=== PATIENT | female | born 1960 | race Hispanic/Latino ===

== ENCOUNTER 2021-11-05 12:18 | Outpatient (CLI) | payer MEDICAID, SELFPAY ==
--- NOTE | ~2021-11-05 | XR_ITS ---
EXAMINATION: XR hip RT min 2V DATE: 11/05/2021 13:05 INDICATION: Right hip pain. TECHNIQUE: 2 views of right hip were obtained. COMPARISON: None. FINDINGS: Bone alignment is normal. No fracture. There is mild right hip osteoarthritis. IMPRESSION: 1. Mild right hip osteoarthritis. Reviewed, dictated and finalized at location A.
--- NOTE | ~2021-11-05 | XR_ITS ---
XR chest 2V DATE: 11/05/2021 13:05 INDICATION: Chest pain. TECHNIQUE: PA and lateral views COMPARISON: None FINDINGS: Normal heart size. Mild aortic unfolding. No hilar or mediastinal enlargement. No pulmonary infiltrate or consolidation, pleural effusion or pulmonary vascular congestion or pneumo thorax is detected. Mild dextroscoliosis and degenerative spurring of the thoracic spine. IMPRESSION: No active cardiopulmonary disease Reviewed, dictated and finalized at location B.
== END 2021-11-05 12:19 | disposition home or self-care (01) ==
PROVIDERS: PCP Physician Assistant; Visit Provider Physician Assistant
DX: R07.89 Other chest pain (principal); G62.9 Polyneuropathy, unspecified; M16.11 Unilateral primary osteoarthritis, right hip; M41.9 Scoliosis, unspecified; M47.814 Spondylosis without myelopathy or radiculopathy, thoracic region
CPT/HCPCS: 71046; 73502

== ENCOUNTER 2021-11-28 09:50 | Outpatient (CLI) | payer MEDICAID, SELFPAY ==
--- NOTE | 2021-11-28 11:00 | NEURO_ITS ---
Impression: # Complains of numbness of left lower extremity. # Normal nerve conduction study except peroneal F-wave is slightly asymmetrical. # Normal needle/EMG exam. # Clinical correlation recommended. Nerve Conduction Studies Anti Sensory Summary Table Stim Site NR Peak (ms) P-T Amp (?V) Site1 Site2 Delta-P (ms) Dist (cm) Constantin (m/s) Left Sup Fibular Anti Sensory (Ant Lat Mall) 14 cm 2.8 12.5 14 cm Ant Lat Mall 2.8 16.0 57 Left Sural Anti Sensory (Lat Mall) Calf 3.3 4.8 Calf Lat Mall 3.3 16.0 48 Motor Summary Table Stim Site NR Onset (ms) O-P Amp (mV) Site1 Site2 Delta-0 (ms) Dist (cm) Constantin (m/s) Left Peroneal Motor (Vastus Med) Ankle 5.0 1.6 Popit Ankle 7.1 39.0 55 Popit 12.1 1.5 Left Tibial Motor (Abd Wells Brev) Ankle 4.9 4.2 Knee Ankle 7.7 41.0 53 Knee 12.6 1.3 F Wave Studies NR F-Lat (ms) L-R F-Lat (ms) Left Peroneal (Mrkrs) (EDB) 52.27 Left Tibial (Mrkrs) (Abd Hallucis) 49.82 EMG Side Muscle Nerve Root Ins Act Fibs Amp Dur Recrt Comment Left AntTibialis Dp Br Fibular L4-5 Nml Nml Nml Nml Nml Left Gastroc Tibial S1-2 Nml Nml Nml Nml Nml Left Fibularis Long Sup Br Fibular L5-S1 Nml Nml Nml Nml Nml Left Flex Dig Long Tibial L5-S2 Nml Nml Nml Nml Nml Left Ext Dig Brev Dp Br Fibular L5, S1 Nml Nml Nml Nml Nml MTDD
== END 2021-11-28 09:51 | disposition home or self-care (01) ==
PROVIDERS: PCP Physician Assistant; Visit Provider Physician Assistant
DX: I71.9 Aortic aneurysm of unspecified site, without rupture (principal)
CPT/HCPCS: 95886; 95908

== ENCOUNTER 2021-12-11 07:30 | Outpatient (CLI) | payer MEDICAID, SELFPAY ==
--- NOTE | ~2021-12-11 | US_ITS ---
EXAMINATION: US aorta DATE: 12/11/2021 08:21 INDICATION: Abdominal aortic aneurysm screening TECHNIQUE: Grayscale, color Doppler, and pulsed Doppler images of the aorta and common iliac arteries were obtained. COMPARISON: None. FINDINGS: Maximum vascular dimensions are as follows: Proximal aorta: 1.9 cm Mid aorta: 1.6 cm Distal aorta: 1.4 cm Right common iliac artery: 1.0 cm Left common iliac artery: 1.0 cm There is no evidence of abdominal aortic aneurysm. IMPRESSION: 1. No sonographic evidence of abdominal aortic aneurysm. Reviewed, dictated and finalized at location B.
== END 2021-12-11 07:31 | disposition home or self-care (01) ==
PROVIDERS: PCP Physician Assistant; Visit Provider Physician Assistant
DX: I71.9 Aortic aneurysm of unspecified site, without rupture (principal)
CPT/HCPCS: 76775

== ENCOUNTER 2021-12-16 07:30 | Outpatient (CLI) | payer MEDICAID, SELFPAY ==
--- NOTE | 2021-12-16 | EST_ITS ---
Patient Info Name: Rina Navarrete Age: 61 years : 1960 Gender: Female Ht: 63 in Wt: 157 lbs BSA: 1.80 m2 HR: 56 bpm BP: 150 / 68 mmHg Heart Rhythm: Sinus Rhythm Exam Date: 12/16/2021 10:29 AM Exam Location: [facility] Stress Patient Status: Outpatient Admit Date: 12/16/2021 Staff Ordering Physician: Gab, Thu REECE Attending Provider: Gab, Thu REECE Exercise Technologist: Marysol Petersen, CT Nurse: fatmata briceno Exam Type: CA stress richard w NM Study Info Indications R07.9 - Chest pain, unspecified A regadenoson stress test was performed. Summary 1. Sinus bradycardia with occasional PVC. 2. No abnormal ST or T-wave abnormalities noted following Lexiscan injection. 3. Occasional PVCs during the exam. 4. Clinically and electrocardiographically uneventful and unremarkable Lexiscan stress test. 5. Myocardial perfusion imaging exam to be reported by Radiology. Protocol: Lexiscan Stress ECG Details Stage: REST Duration (min): 1 min : 16 sec HR (bpm): 57 SBP (mmHg): 150 DBP (mmHg): 68 Stage: REST Duration (min): 5 min : 29 sec HR (bpm): 60 SBP (mmHg): 150 DBP (mmHg): 68 Stage: STAGE 1 Duration (min): 1 min : 0 sec HR (bpm): 95 SBP (mmHg): 150 DBP (mmHg): 68 Stage: RECOVERY Duration (min): 1 min : 0 sec HR (bpm): 98 SBP (mmHg): 150 DBP (mmHg): 68 Stage: RECOVERY Duration (min): 2 min : 0 sec HR (bpm): 93 SBP (mmHg): 150 DBP (mmHg): 68 Stage: RECOVERY Duration (min): 3 min : 0 sec HR (bpm): 90 SBP (mmHg): 150 DBP (mmHg): 66 Stage: RECOVERY Duration (min): 3 min : 16 sec HR (bpm): 89 SBP (mmHg): 150 DBP (mmHg): 66 Rest HR: 60 bpm Peak HR: 101 bpm Rest Sys BP: 150 mmHg Peak Sys BP: 150 mmHg Max Pred HR: 157 bpm % Max Pred HR: 64 % Target HR: 133 bpm Max RPP: 15,150 bpm*mmHg Termination Reason: Completed protocol Cardiac Symptoms: None Total Time: 1 min : 0 sec Rest Erickson BP: 68 mmHg Peak Erickson BP: 66 mmHg Total Dose: 0.4 mg Resting ECG Sinus bradycardia with occasional PVC. Stress ECG No abnormal ST or T-wave abnormalities noted following Lexiscan injection. Arrhythmias Occasional PVCs during the exam. Report Signatures
--- NOTE | 2021-12-16 | ECHO_ITS ---
Patient Info Name: Rina Navarrete Age: 61 years : 1960 Gender: Female Ht: 57 in Wt: 220 lbs BSA: 2.07 m2 HR: 69 bpm BP: 162 / 84 mmHg Heart Rhythm: Sinus Rhythm Technical Quality: Good Exam Date: 12/16/2021 8:26 AM Exam Location: [facility] Patient Status: Outpatient Admit Date: 12/16/2021 Staff Ordering Physician: GabThu Heel Stainer: Kati Edwards RDCS Attending Provider: Gab, Thu REECE Referring Physician: Gab SKINNER; Exam Type: CA echo doppler color flow Study Info Indications I71.9 - Aortic aneurysm of unspecified site, without rupture Complete two-dimensional, color flow and Doppler transthoracic echocardiogram is performed. Summary 1. Complete two-dimensional, color flow and Doppler transthoracic echocardiogram is performed. 2. Left ventricular chamber dimension is normal. 3. Left ventricular systolic function is normal, estimated at 65-70%. 4. Left atrial chamber dimension is mildly enlarged. 5. Very small amounts of mitral, aortic and tricuspid valve insufficiency. Left Ventricle Left ventricular chamber dimension is normal. Left ventricular systolic function is normal, estimated at 65-70%. The left ventricular diastolic function is normal. Global longitudinal strain is normal at 22 %. Right Ventricle Right ventricular chamber dimension is normal. Left Atria Left atrial chamber dimension is mildly enlarged. Right Atria Right atrial chamber dimension is normal. Aortic Valve The aortic valve is normal. There is trace aortic valve regurgitation. Pulmonic Valve The pulmonic valve is not well visualized. Mitral Valve The mitral valve has normal leaflets. There is trace mitral valve regurgitation. Tricuspid Valve The tricuspid valve leaflets are normal. There is mild tricuspid valve regurgitation. Pericardium/Pleural The pericardium appears normal. Aorta The aortic root size at the sinus of Valsalva is normal. Left Ventricular Outflow Tract Name Value Normal LVOT 2D LVOT Diameter 2.0 cm LVOT Doppler LVOT Peak Gradient 5 mmHg LVOT Mean Gradient 3 mmHg LVOT VTI 28 cm LVOT VTI/AV VTI Ratio 0.8 LVOT Stroke Volume 87 ml LVOT CO 5.5 l/min LVOT CI 2.6 l/min/m2 Pulmonic Valve Name Value Normal RVOT Doppler RVOT Peak Gradient 4 mmHg PV Doppler PV Peak Gradient 9 mmHg Mitral Valve Name Value Normal
--- NOTE | ~2021-12-16 | NM_ITS ---
EXAMINATION: NM richard stress w perfusion DATE: 12/16/2021 11:33 INDICATION: Chest pain. TECHNIQUE: Rest images were obtained following intravenous administration of 11.2 mCi Tc99m tetrofosm in (Myoview). The patient was infused intravenously with Lexiscan (regadenoson). Then, 32.3 mCi Tc99m tetrofosmin (Myoview) was administered intravenously, and stress images were obtained. Data was radha nstructed into short axis and horizontal and vertical long axis SPECT images. Gated SPECT images were also obtained. COMPARISON: None. FINDINGS: There is no definite reversible or fixed perfusion abnormality to suggest ischemia or infar ction. There is no segmental wall motion abnormality. Left ventricular ejection fraction measures > 70%. IMPRESSION: 1. No definite ischemia or infarct. 2. Normal left ventricular ejection fraction measuring >70%. Reviewed, dictated and finalized at location A.
== END 2021-12-16 07:31 | disposition home or self-care (01) ==
LOC: ANHCARD 07:31
PROVIDERS: PCP Physician Assistant; Visit Provider Physician Assistant
DX: R07.9 Chest pain, unspecified (principal)
CPT/HCPCS: 78452; 93017; 93306; A9502; J2785

== ENCOUNTER 2022-04-23 11:00 | Outpatient (RCR) | payer MEDICAID, SELFPAY ==
--- NOTE | 2022-02-20 15:46 | PTOPEVAL1 ---
Assessment and note entered by Kenyetta Austin, PT Evaluation Information Assessment Status Evaluation Diagnosis R hip pain Onset over 1 year ago Subjective Information chronic issues with hip; decreased walking and stairs due to pain; have problems putting on shoes and socks R LE; have had 2 falls in the past 6 months--tripped over R foot and caught toe on rug; had nerve conduction test on legs and was normal; x rays at chiropractor told her arthritis in back and hip; Reported Pain Level Pain Score Self Report Additional Pain Score Comments pain range of 7-8/10; lateral R hip pain; stinging pain, sore,hurts; walking tolerance reported 10 min; problems with putting on shoes and socks R foot; walking and stairs increase pain ; R leg weak and feels like going to go out; sleeps on her L side, can sleep OK; also have R and L knee pain, L hip pain, low back pain; Assessment PT Clinical Summary Rina has the diagnosis of R hip pain. Her history includes: multiple areas of pain: low back pain, L hip pain; B TKR with knee pain, falls and decreased walking. Reports pain and weakness in R leg. She is not doing any home exercises, other than home tasks and walking short distances. She speaks Kinyarwanda--her daughter was present and interpreted for pt. With the evaluation, she has decreased strength of R hip, knee and ankle; decreased flexibility of R hamstring; decreased walking pattern and balance 2 minute walking test distance of 320'; Skilled PT services are indicated to increase R LE strength, gait and balance skills, with modalities for pain as needed. Will monitor back pain as activity level increases. Plan of Care Interventions Electrical Stimulation,Hot Pack/Cold Pack,Manual Therapy,Neuro Re-education,Patient/Caregiver Education,Therapeutic Activities,Therapeutic Exercise PT Services Indicated Yes Treatment Frequency and 2x/wk for 4 weeks Duration These treatments will address the objective and functional deficits as defined above. The patient will be advanced safely and appropriately in order for the patient to progress towards his/her prior level of function. Additional exercises will be introduced and as well as a comprehensive home exercise program upon discharge, if needed, ?to ensure carryover of functional gains achieved in the clinic. This treatment plan has been reviewed and agreement upon by the patient.
--- NOTE | 2022-03-19 11:49 | PTOPPROG ---
Assessment and note entered by Kenyetta Austin, PT Evaluation Information Assessment Status Progress Diagnosis R hip pain Onset over 1 year ago Subjective Information feels like she has improved with stability with walking and able to get dressed easier with shoes, socks and pants; have not had any falls; has been doing the leg exercises; when moving her leg, it feels like her muscles are not listening to what her brain is telling them to move; the massage over her leg and back helps the pain; wants to continue therapy; has a follow up dr appointment this afternoon. pain range of 0-7/10, R low back and R hip, sore like it was hit, sore to touch; walking/standing tolerance about 10 minutes, then R leg and foot drag; Assessment PT Clinical Summary Rina has received 8 PT sessions. Her daughter interprets for her. Compared to the initial evaluation: pain at the low rating has decreased from 7 to 0/10 and worst rating decreased from 8 to 7/10; reported walking tolerance is the same; is not able to lift R leg and cross it onto her L to put her shoes and socks on; 2 minute walking distance increased by 80'; her walking pattern is the same---decreased R ankle DF, holds B hips IR, L > R, lateral motion of her trunk R/L; strength of R hip and ankle have increased but still have weakness of hip abduction and ankle DF motions. She has been educated on a home exercise program and correct posture/positioning of hips/legs. The goals were partially achieved. Continue PT treatment. Plan of Care Interventions Electrical Stimulation,Gait Training,Hot Pack/Cold Pack,Manual Therapy,Neuro Re-education,Patient/ Caregiver Education,Therapeutic Activities, Therapeutic Exercise,Ultrasound,Other Other Interventions taping PT Services Indicated Yes Treatment Frequency and 1x/wk for 5 weeks Duration These treatments will address the objective and functional deficits as defined above. The patient will be advanced safely and appropriately in order for the patient to progress towards his/her prior level of function. Additional exercises will be introduced and as well as a comprehensive home exercise program upon discharge, if needed, ?to ensure carryover of functional gains achieved in the clinic. This treatment plan has been reviewed and agreement upon by the patient.
--- NOTE | 2022-04-10 14:13 | PCPTNOTE ---
Pt no showed appt today, CHIEF ACCOUNTING OFFICER called number listed in chart with recording that the voicemail has not been set up.
--- NOTE | 2022-04-23 11:39 | PTOPDC ---
Assessment and note entered by Kenyetta Austin, PT Evaluation Information Assessment Status Discharge Diagnosis R hip pain Onset over 1 year ago Subjective Information pt and her daughter report: have not had any falls ; more sore from moving and the new apartment has stairs to the bedroom; standing/walking tolerance 30-40 minutes; Reported Pain Level Pain Score Self Report Additional Pain Score Comments pain range in past week: 0-8/10; R posterior, lateral hip and into lateral thigh; increase pain with stairs, after sitting and get up when first start walking; decreased pain with tylenol, heat and massage with tennis ball; Assessment PT Clinical Summary Rina has received 12 PT sessions. Compared to the last reeval: pain rating same at low rating 0/10 and increase from 7 to 8/10 at high rating; reported standing/walking tolerance increased from 10 min to 30-40 minutes; 2 minute walking distance & strength with R single leg standing, side lying hip abduction and ankle DF & circles is about the same; gait pattern is a little more straight, not as much deviation R/L The goals were partially achieved. Discussed with her, if she continues to have hip pain, may want to obtain an orthopedic consult for assessment for THR or if it is referred from her lumbar spine. Discharge from PT and she is to continue with her HEP. Plan of Care PT Services Indicated No
== END 2022-04-23 13:20 | disposition home or self-care (01) ==
LOC: ANHPT 11:00
PROVIDERS: PCP Physician Assistant; Visit Provider Physician Assistant
DX: M25.551 Pain in right hip (principal)
CPT/HCPCS: 97014; 97110; 97140; 97162; 97530; G0283

== ENCOUNTER 2022-04-30 13:05 | Outpatient (CLI) | payer MEDICAID, SELFPAY ==
--- NOTE | ~2022-04-30 | US_ITS ---
US breast RT limited DATE: 04/30/2022 13:48 INDICATION: Right chest wall/breast mass, 7:00-8:00 area 6 cm from nipple TECHNIQUE: Real-time imaging 7:00-8:00 6 cm from nipple at area of complaint of breast lump. COMPARISON: None FINDINGS: Real-time imaging 7:00-8:00 6 cm from nipple at area of complaint of breast lump reveals no suspicious mass or shadowing, cyst or other significant sonographic abnormality. IMPRESSION: BI-RADS Category 1: Negative There is no record mammogram examinations of this institution. Annual mammographic screening is recom mended. Reviewed, dictated and finalized at Location [facility]. Reviewed, dictated and finalized at location A. TEACHER IMPRESSION: BI-RADS Category 1: Negative There is no record mammogram examinations of this institution. Annual mammograp hic screening is recommended.
== END 2022-04-30 13:06 | disposition home or self-care (01) ==
PROVIDERS: PCP Physician Assistant; Visit Provider Physician Assistant
DX: R22.2 Localized swelling, mass and lump, trunk (principal)
CPT/HCPCS: 76604; 76642

== ENCOUNTER 2022-07-15 20:16 | Emergency (ER) | payer MEDICAID, SELFPAY ==
--- NOTE | ~2022-07-15 | CT_ITS ---
CT of the Abdomen and Pelvis: Indication: Abdominal pain Technique: 2.5 mm axial scans were obtained through the abdomen and pelvis following intravenous adm inistration of 100 cc of Omnipaque 350. Dose reduction technique was used on this scan by utilizing a utomated exposure control and iterative reconstruction technique. The dose-length product (DLP) was 1 076.92 mGy-cm. Findings: Scans through the lung bases are unremarkable. The liver, spleen, pancreas, adrenals and kidneys are within normal limits. Tiny calcified gallstones noted. No evidence of aortic aneurysm. No lymphadenopathy. No bowel obstruction or bowel wall thickening. There is no evidence to suggest acute appendicitis. Images through the pelvis were performed. Urinary bladder unremarkable. Patient is post hysterectomy. No pelvic mass seen. No ascites. Impression: Cholelithiasis. Reviewed, dictated and finalized at [facility]. Impression: Cholelithiasis.
[2022-07-15 20:26] VITALS: BP 142/77; PULSE 95; RESP 19; TEMP 37.4; O2SAT 96
[2022-07-15 20:57] LABS: Basophils Percent Auto 0.3 % (0.2-1.2); Eosinophils Percent Auto 0.5 % (0-4.4); Hematocrit 39.7 % (37.0-47.0); Hemoglobin 13.1 g/dL (12.0-15.0); Immature Granulocyte Absolute 0.03 K/mm3 (0.00-0.031); Immature Granulocyte Percent A 0.4 % (0-0.5); Lymphocytes Absolute Auto 1.33 K/mm3 (0.9-3.2); Lymphocytes Percent Auto 17.2 % (18.3-44.2); Mean Corpuscular Hemoglobin 31.1 pg (26-34); Mean Corpuscular Volume 94.3 fl (80-100); Mean Platelet Volume 11.2 fl (7.4-10.4); Monocytes Absolute Auto 0.4 K/mm3 (0.1-0.6); Monocytes Percent Auto 5.6 % (2.6-8.5); Neutrophils Absolute Auto 5.9 K/mm3 (1.3-6.7); Platelet Count Result 168 k/mm3 (150-375); Red Blood Count 4.21 M/mm3 (4.2-5.4); Red Cell Distribution Width 13.2 % (11.5-14.5); White Blood Count 7.7 K/mm3 (4.5-10.0)
[2022-07-15 21:14] LABS: Alanine Aminotransferase 25 U/L (6-35); Albumin Level 4.8 g/dL (3.5-5.1); Alkaline Phosphatase 107 U/L (38-126); Anion Gap 10 mmol/L (8-16); Aspartate Amino Transferase 27 U/L (14-36); Bilirubin,Total 0.5 mg/dL (0.2-1.3); Blood Urea Nitrogen 11 mg/dL (7-17); Calcium 8.9 mg/dL (8.4-10.2); Carbon Dioxide 28 mmol/L (22-30); Chloride 103 mmol/L (98-107); Estimated CRCL calculation 99 ml/min; Estimated Glomerular Filt Rate > 60; Glucose 123 mg/dL (65-110); Lipase 37 U/L (23-300); Potassium 3.6 mmol/L (3.4-5.0); Sodium 141 mmol/L (137-145)
[2022-07-15 22:29] LABS: Appearance Urine Clear (Clear); Bacteria Urine None Seen /hpf; Bilirubin Urine Negative (Negative); Blood Urine Negative (Negative); Color Urine Yellow (Yellow); Glucose Urine UA Negative (Negative); Ketones Urine Negative (Negative); Leukocyte Esterase Ur 1+ LEU/UL (Negative); Nitrate Urine Negative (Negative); Non Pathogenic Casts 0-2; Protein Urine Negative (Negative); RBC Urine 0-2 /hpf (0-2); Specific Grav Ur 1.013 (1.001-1.035); Squamous Epithelial Cell Urine Occasional /hpf (Few); Urobilinogen Urine 0.2 mg/dL (<2.0)
[2022-07-15 22:41] LABS: Add Urine Microscopic? YES
--- NOTE | 2022-07-15 23:05 | PC.NURSE ---
Patient report given to OBDULIA Goetz. All questions answered and care of patient transferred.
--- NOTE | 2022-07-15 23:56 | ED.ABDPAIN ---
HPI - Abdominal Pain General Chief Complaint: Abdominal Pain Stated Complaint: vomiting Time Seen by Provider: 07/15/22 23:36 History of Present Illness HPI narrative: Patient is a 61-year-old female here for evaluation of right upper quadrant abdominal pain x1 day. Patient states the pain is mild and intermittent in nature, occasionally will radiate to her right scapula. She is also had numerous episodes of vomiting nonbloody/nonbilious emesis over the past day in addition to several episodes of diarrhea. The last thing that she ate was some beef out of a can. Denies any fevers or chills, sick contacts. She has had no surgeries on her abdomen. Related Data Home Medications Medication Instructions Recorded Confirmed aspirin 81 mg tablet,delayed 81 mg PO DAILY 12/12/21 06/18/22 release (Adult Low Dose Aspirin) atorvastatin 10 mg tablet 10 mg PO DAILY 12/12/21 06/18/22 baclofen 10 mg tablet 10 mg PO BID 12/12/21 06/18/22 carbamazepine 200 mg tablet 200 mg PO Q12H 12/12/21 06/18/22 hydrochlorothiazide 25 mg tablet 25 mg PO DAILY 12/12/21 06/18/22 amitriptyline 50 mg tablet 50 mg PO QHS 06/18/22 06/18/22 lisinopril 2.5 mg tablet 2.5 mg PO DAILY 06/18/22 06/18/22 Allergies Allergy/AdvReac Type Severity Reaction Status Date / Time No Known Allergies Allergy Verified 06/18/22 10:17 Review of Systems Review of Systems: Gen.: Denies fevers or chills Eyes: Denies eye pain or visual change ENT: Denies congestion Respiratory: Denies shortness of breath or cough CV: Denies chest pain or palpitations GI: Reports abdominal pain, nausea and vomiting denies burning, urgency, frequency or hematuria Musculoskeletal: Denies back pain or muscle pain Neuro: Denies numbness, tingling, weakness or focal weakness Skin: Denies rash Except as documented, all other systems reviewed and negative [facility] Past Medical History Medical History Borderline hyperlipidemia Cerebrovascular accident Chest pain Hypertension Neuropathy Obesity Pain in joint of right hip Trigeminal neuralgia Social History Social History Smoking status: Never smoker Alcohol intake: never Substance use: never Exam Narrative: APPEARANCE: Well appearing, no pain in distress, well-nourished. Head: Normocephalic and atraumatic. EYES: PERRLA/EOMI, conjunctivae clear NOSE: No nasal drainage EARS: External ear normal in appearance THROAT: Oropharynx is clear. Mucous membranes are moist. NECK: Supple. No adenopathy, no masses. RESPIRATORY: Airway patent, respirations nonlabored. Clear to auscultation bilaterally, no rales, rhonchi, wheezing. CARDIOVASCULAR: Regular rate and rhythm without murmurs, rubs, or gallops. ABDOMINAL: tender to palpation in RUQ. Normoactive bowel sounds. Soft, nondistended. No rebound tenderness or guarding. MUSCULOSKELETAL: Extremities are warm and well-perfused. Moves all extremities well. No edema. NEURO: Normal speech. No focal neurologic deficits. SKIN: Skin is warm and dry. No rashes. PSYCHIATRIC: Normal affect/mood. Course Vital Signs Vital signs: Vital Signs Temperature 99.3 F 07/15/22 20:26 Pulse Rate 95 07/15/22 20:26 Respiratory Rate 19 07/15/22 20:26 Blood Pressure 142/77 H 07/15/22 20:26 Pulse Oximetry 96 07/15/22 20:26 Oxygen Delivery Room Air 07/15/22 20:26 Temperature 99.3 F 07/15/22 20:26 Pulse Rate 78 07/16/22 02:16 Respiratory Rate 18 07/16/22 02:16 Blood Pressure 140/85 07/16/22 02:16 Pulse Oximetry 98 07/16/22 02:16 Oxygen Delivery Room Air 07/15/22 20:26 MDM - Abdominal Pain MDM Narrative Medical decision making narrative: Patient is a 61-year-old female here for evaluation of abdominal pain, nausea and vomiting over the past several days after eating something suspicious at home. She is nontoxic in appearance and has normal vital sign
[2022-07-16] MEDS: SODIUM CHLORIDE 0.9% IV 1,000 ML 999 ML IV CONT (00:20)
[2022-07-16] MEDS: FAMOTIDINE 20 MG/2 ML VIAL IV PUSH (00:22)
[2022-07-16] MEDS: ONDANSETRON INJ 4 MG/2 ML VIAL IV PUSH (00:23)
[2022-07-16 02:16] VITALS: BP 140/85; PULSE 78; RESP 18; O2SAT 98
== END 2022-07-16 02:19 | disposition home or self-care (01) ==
PROVIDERS: Emergency Medicine; Emergency Provider Physician Assistant; PCP Physician Assistant
DX: K52.9 Noninfective gastroenteritis and colitis, unspecified (principal); I10 Essential (primary) hypertension; G62.9 Polyneuropathy, unspecified; E66.9 Obesity, unspecified; Z68.41 Body mass index [BMI] 40.0-44.9, adult; Z86.73 Personal history of transient ischemic attack (TIA), and cerebral infarction without residual deficits; Z79.82 Long term (current) use of aspirin
CPT/HCPCS: 36415; 74177; 80053; 81001; 81025; 83690; 85025; 87086; 87147; 87181; 87186; 96361; 96374; 96375; 99284; J2405; J7030; Q9967

== ENCOUNTER 2022-08-18 11:38 | Outpatient (CLI) | payer MEDICAID, SELFPAY ==
[2022-08-18 13:26] LABS: Amylase 70 U/L (30-110)
== END 2022-08-18 11:39 | disposition home or self-care (01) ==
LOC: ANHSURGERY 11:44
PROVIDERS: PCP Physician Assistant; Visit Provider Surgery
DX: K80.20 Calculus of gallbladder without cholecystitis without obstruction (principal)
CPT/HCPCS: 36415; 82150; 86850; 86900; 86901

== ENCOUNTER 2022-08-25 00:09 | Day surgery (SDC) | payer MEDICAID, SELFPAY ==
[2022-08-18 12:13] VITALS: BP 147/69; PULSE 60; RESP 16; TEMP 37; O2SAT 96; BMI 41.3
--- NOTE | 2022-08-18 12:48 | PC.NURSE ---
Report to the Outpatient Waiting Room, entrance under the green pavilion located off [facility], at time __11:30PM on date __08/25/22 . Planned Procedure Time: ___1:30PM . Time changes happen often and if your time is changed the preop area will call you the afternoon before. - You and your visitor will be asked to self-screen and do not enter if you have any COVID symptoms. - A mask is optional within the hospital at this time. Patients may have clear liquids (water, carbonated beverages, clear teas, apple juice) until 3 hours prior to surgery with a maximum of 20 ounces. - No food from midnight until time of surgery Take the following medications with a SIP of water the morning of surgery: ___CARBAMAZEPINE DO NOT STOP ANY OF YOUR OTHER PRESCRIPTION MEDICATIONS PRIOR TO SURGERY ?EXCEPT THE FOLLOWING Medications to discontinue per physician ____HOLD ALL VITAMINS/SUPPLEMENTS 3 DAYS PRE-OP Date to take last dose___08/21/22 Please no make-up, nail arabic, hairspray, perfume, deodorant, or body powder the day of surgery. No jewelry (including any body piercings) or valuables the day of surgery, leave them at home. Please take a shower or bath the night before, or the morning of, surgery with an antibacterial soap. Wear comfortable, loose fitting clothing. Children are encouraged to wear pajamas. - Jewelry must be removed prior to entering the operating room. Rings and piercings that are not removed may be cut off. - The hospital will not accept responsibility for valuables. - Please leave all valuables, including medications, at home the day of surgery. If you are going home after surgery, a licensed driver's education instructor must drive you home. - NO public transportation without another adult if you receive anesthesia. - We recommend that an adult stay with you for 24 hours following discharge. - We also recommend that you do not drive, make important decision, drink alcoholic beverages, or take any drugs that were not prescribed by your health care provider for at least 24 hours after your discharge time. Follow any additional instructions given to you from your surgeon. HIBICLENS SHOWER MORNING OF SURGERY If you or anyone in your household have experienced Covid symptoms in the past week, please notify your surgeon or the nurse liaison at the phone number below for possible testing. Telephone instructions given to __PATIENT & SON and asked if any additional questions and then verbalized understanding. Patient advised to call surgeon office or pre surgery nurse liaison [phone] if any additional questions.
[2022-08-25] VITALS (9 sets, daily range): BP systolic 123–150; BP diastolic 52–72; PULSE 60–83; RESP 12–16; TEMP 36.4–36.7; O2SAT 94–98
[2022-08-25] MEDS: ACETAMINOPHEN 500 MG TABLET 1000 MG PO (11:03)
--- NOTE | 2022-08-25 11:23 | WPDHPUPDATE1 ---
History and Physical Update Update Date/Time: 08/25/22 11:23 History and Physical has been reviewed, including an updated exam of the patient. There are NO changes in the patient's condition. Risks, benefits, and alternatives have been discussed and questions answered. Patient agrees to proceed with procedure.
[2022-08-25] MEDS: LACTATED RINGERS 1,000 ML 30 ML IV CONT ×2 (11:30→13:44)
[2022-08-25] MEDS: KETOROLAC 15 MG/ML VIAL (*BKC) IV PUSH (11:54)
--- NOTE | 2022-08-25 12:18 | P.PNAN_ITS ---
Anes - Initial Pre Proc Eval Procedure: Operation Date: 08/25/22 13:00 Proposed Procedures p Laparoscopic Cholecystectomy, Possible Open - Dylan Jesus DO Date/Time: 08/25/22 12:18 Surgeon: Dylan Jesus DO Pre Op Diagnosis: symptomatic cholelithiasis Patient Data Age: 61 Gender: F Height: 1.52 m Weight: 94.3 kg Last Vital Signs Temp 36.7 C 08/25/22 11:37 Pulse 83 08/25/22 11:37 Resp 16 08/25/22 11:37 BP 142/72 H 08/25/22 11:37 Pulse Ox 97 08/25/22 11:37 O2 Del Method Room Air 08/25/22 11:37 Allergies Allergy/AdvReac Type Severity Reaction Status Date / Time No Known Allergies Allergy Verified 08/25/22 10:51 Home Medications Medication Instructions Recorded Confirmed Type aspirin 81 mg tablet,delayed 81 mg PO DAILY 12/12/21 08/25/22 History release (Adult Low Dose Aspirin) atorvastatin 10 mg tablet 10 mg PO HS 12/12/21 08/25/22 History baclofen 10 mg tablet 5 mg PO BID 12/12/21 08/18/22 History carbamazepine 200 mg tablet 150 mg PO Q12H 12/12/21 08/18/22 History hydrochlorothiazide 25 mg tablet 25 mg PO QAM 12/12/21 08/25/22 History amitriptyline 50 mg tablet 50 mg PO QHS 06/18/22 08/25/22 History ondansetron 4 mg disintegrating 4 mg PO Q8H PRN nausea and 07/16/22 08/18/22 Rx tablet vomiting #7 tabs lisinopril 10 mg tablet 10 mg PO HS 08/18/22 08/25/22 History magnesium 250 mg tablet 250 mg PO DAILY 08/18/22 08/25/22 History multivitamin 1 tablet PO DAILY 08/18/22 08/25/22 History omega 2-unr-rjz-fish oil 1,200 mg 1 cap PO DAILY 08/18/22 08/25/22 History (144 mg-216 mg) capsule (Fish Oil) Patient hx anesthesia problems: none Family hx anesthesia problems: none Results Review: All pre-operative results and documents have been reviewed as part of the pre- operative evaluation. [facility], [facility] Past Medical History Medical History Borderline hyperlipidemia Cerebrovascular accident Chest pain Hypertension Neuropathy Obesity Pain in joint of right hip Trigeminal neuralgia Social History Social History Smoking status: Never smoker Alcohol intake: never Substance use: never Living arrangements: with family Additional living arrangements comments: DAUGHTER Spiritual care concerns: No Anes - Eval Final PreProcedure Day of Procedure 08/25/22 12:18 Patient weight: morbidly obese Heart: regular rate and rhythm Lungs: clear to auscultation Airway: Mallampati scale class II Neurological: alert and oriented Last oral intake: >/= 8 hours ASA classification: III Emergent: no Anesthetic plan: proceed Anesthesia type and monitoring: general ETT and standard monitoring Results Review: All pre-operative results and documents have been reviewed as part of the pre- operative evaluation. Informed Consent: The patient's anesthetic plan and its attendant risks and benefits were discussed with the patient/family/POA. Questions were solicited and answers prov ided to the satisfaction of the patient/family/POA.
[2022-08-25] MEDS: ceFAZolin 2 GM/D5W 50 ML 2 GM/50 ML BAG IVPB (12:44)
[2022-08-25] MEDS: BUPIVACAINE/EPINEPHRINE 0.5% 50 ML VIAL 30 ML INFILTRATE (13:26)
--- NOTE | 2022-08-25 13:35 | W.PM.PROC2 ---
Procedure Note - Detailed Date of Procedure 08/25/22 Pre-op Diagnosis symptomatic cholelithiasis Post-op Diagnosis Same Procedure Performed Laparoscopic Cholecystectomy Surgeon Dylan Jesus, DO Anesthesia General and Local (0.5% bupivacaine) Indications This is a 61-year-old woman who presented with upper abdominal pain that started about 1 year ago. Her symptoms became more frequent and severe over the past month. She was experiencing symptoms particularly with eating fried or fatty foods. A CT of her abdomen and pelvis was performed which showed evidence of cholelithiasis. Discussions were made with the patient about treatment options and decision was made to proceed with laparoscopic cholecystectomy, possible open. Findings Laparoscopic cholecystectomy was performed. The patient was found to have a dilated gallbladder that tapered down to a normal appearing cystic duct. The gallbladder wall appeared normal. No other significant abnormalities were noted. The gallbladder was removed and sent to the lab for pathology. Description of Procedure Procedure as well as risks, benefits, and alternatives were discussed with patient. Written consent was obtained and placed in chart prior to procedure. The patient was brought back to surgical suite. Patient was placed in supine position on operating table. Time-out was done to confirm patient and procedure. Patient was then intubated by the anesthesia department. Abdomen was prepped and draped in sterile fashion using chlorhexidine prep. 0.5% bupivacaine with epinephrine was infiltrated at each site of incision. A 5 millimeter incision was made near the umbilicus, and a 5 millimeter Optiview trocar was advanced through the abdominal layers under direct visualization. Once inside the abdominal cavity, carbon dioxide was insufflated to create a pneumoperitoneum. The camera was inserted and the abdomen was inspected. No immediate abnormalities were identified. The patient was placed in reverse Trendelenburg position and rotated slightly to the left. An 11 millimeter incision was made in the subxiphoid region, and an 11 millimeter trocar was inserted under direct visualization. Two 5 millimeter incisions were made in the right upper quadrant, and two 5 millimeter trocars were inserted under direct visualization. The gallbladder was identified and grasped at the fundus and retracted superiorly. It was then grasped at the infundibulum retracted laterally. Careful dissection around the neck of the gallbladder was performed using blunt dissection with a [place] grasper and hook electrocautery. The cystic duct was identified, and a window was created behind it. The cystic artery was also identified and a window was created behind it. The critical view of safety was identified, visualizing the cystic duct running directly into the neck of the gallbladder, and the cystic artery running directly into the wall of the gallbladder. A 5 millimeter clip pulmonary fellow was then used to place 2 clips proximally and 1 clip distally on both the cystic duct and cystic artery. They were then both transected using endoscopic scissors. Once safely away from the erendira hepatitis, the gallbladder was dissected free from the liver bed using hook electrocautery. Hemostasis was achieved along the way. The gallbladder was removed completely and then removed through the subxiphoid port. The liver bed was then inspected. Hemostasis appeared adequate, and our clips appeared secure. The area was gently irrigated with sterile saline. No other abnormalities were seen. The patient was flattened out in bed, and 1 final inspection was made around the abdominal cavity. The subxiphoid port was removed, and a Donny Gordy cone was used to approximate the fascia with an 0-Vicryl simple interrupted suture. The remaining ports were then removed under direct visualization, the camera was removed, and the pneumoperitoneum was released. The ski
[2022-08-25] MEDS: fentaNYL CITRATE INJ (*CRX) 100 MCG/2 ML VIAL 25 MCG IV PUSH ×3 (13:59→14:12)
--- NOTE | 2022-08-25 14:10 | SUR.PHASEI ---
Simple mask removed at 1410.
[2022-08-25] MEDS: oxyCODONE HCL (*CRX) 5 MG TAB IR PO (15:15)
== END 2022-08-25 16:10 | disposition home or self-care (01) ==
PROVIDERS: PCP Physician Assistant; Visit Provider Surgery
PROC: 0FT44ZZ Resection of Gallbladder, Percutaneous Endoscopic Approach (ICD-10-PCS; CPT 47562; principal; 2022-08-25 13:00)
DX: K80.10 Calculus of gallbladder with chronic cholecystitis without obstruction (principal); I10 Essential (primary) hypertension; E66.01 Morbid (severe) obesity due to excess calories; Z68.41 Body mass index [BMI] 40.0-44.9, adult; Z79.82 Long term (current) use of aspirin
CPT/HCPCS: 47562; 88304; A9270; J0690; J1100; J1170; J1885; J2250; J2405; J2704; J3010; J7030; J7120

== ENCOUNTER 2022-11-12 04:20 | Day surgery (SDC) | payer MEDICAID, SELFPAY ==
[2022-11-03 11:06] VITALS: BMI 35.9
[2022-11-12 08:16] VITALS: BP 144/80; PULSE 74; RESP 20; TEMP 36.1; O2SAT 99; BMI 36.3
[2022-11-12] MEDS: LACTATED RINGERS 1,000 ML 150 ML IV CONT (08:26)
--- NOTE | 2022-11-12 08:44 | P.PNAN_ITS ---
Anes - Initial Pre Proc Eval Procedure: Operation Date: 11/12/22 10:00 Proposed Procedures p Screening Colonoscopy - Darrion Chandra MD Date/Time: 11/12/22 08:44 Surgeon: Darrion Chandra MD Pre Op Diagnosis: neoplasm screening Patient Data Age: 61 Gender: F Height: 1.6 m Weight: 93.1 kg Last Vital Signs Temp 97 F L 11/12/22 08:16 Pulse 74 11/12/22 08:16 Resp 20 11/12/22 08:16 BP 144/80 H 11/12/22 08:16 Pulse Ox 99 11/12/22 08:16 O2 Del Method Room Air 11/12/22 08:16 Allergies Allergy/AdvReac Type Severity Reaction Status Date / Time No Known Allergies Allergy Verified 11/12/22 08:15 Home Medications Medication Instructions Recorded Confirmed Type aspirin 81 mg tablet,delayed 81 mg PO DAILY 12/12/21 11/03/22 History release (Adult Low Dose Aspirin) atorvastatin 10 mg tablet 10 mg PO HS 12/12/21 11/03/22 History baclofen 10 mg tablet 5 mg PO BID PRN Pain 12/12/21 11/03/22 History carbamazepine 200 mg tablet 350 mg PO Q12H 12/12/21 11/03/22 History lisinopril 10 mg tablet 10 mg PO HS 08/18/22 11/03/22 History multivitamin 1 tablet PO DAILY 08/18/22 11/03/22 History omega 3-xbg-tfz-fish oil 1,200 mg 1 cap PO DAILY 08/18/22 11/03/22 History (144 mg-216 mg) capsule (Fish Oil) ciclopirox 8 % topical solution 1 applic topical DAILY 11/03/22 11/03/22 History Patient hx anesthesia problems: none Family hx anesthesia problems: none Results Review: All pre-operative results and documents have been reviewed as part of the pre- operative evaluation. [facility] Past Medical History Medical History (Updated 09/08/22 @ 11:02 by Kimberlee Antoine) Borderline hyperlipidemia Cerebrovascular accident Chest pain Hypertension Neuropathy Obesity Pain in joint of right hip Trigeminal neuralgia Surgical History Surgical History (Updated 09/08/22 @ 10:57 by Evelyn León Morena) Hx laparoscopic cholecystectomy 08/25/22 Social History Social History Smoking status: Never smoker Alcohol intake: never Substance use: never Living arrangements: with family Additional living arrangements comments: DAUGHTER Spiritual care concerns: No Anes - Eval Final PreProcedure Day of Procedure 11/12/22 08:44 Patient weight: obese Heart: regular rate and rhythm Lungs: clear to auscultation Airway: Mallampati scale class III Neurological: alert and oriented Last oral intake: >/= 8 hours ASA classification: III Emergent: no Anesthetic plan: proceed Anesthesia type and monitoring: general GIVS and standard monitoring Results Review: All pre-operative results and documents have been reviewed as part of the pre- operative evaluation. Informed Consent: The patient's anesthetic plan and its attendant risks and benefits were discussed with the patient/family/POA. Questions were solicited and answers provided to the satisfaction of the patient/family/POA.
--- NOTE | 2022-11-12 09:20 | PM.HPGS ---
History of Present Illness History of Present Illness Consent: Risks, benefits, and alternatives have been discussed and questions answered. Patient agrees to proceed with procedure. Chief complaint: neoplasm screening Narrative: Rina Navarrete is a 61 year old female here for first screening colonoscopy Review of Systems Constitutional: Constitutional: Denies headache(s) and Denies weakness Eyes: Eyes: Denies blurry vision ENT: Reports Normal hearing present, Denies headache(s) and Denies neck pain Cardiovascular: Cardiovascular: Denies chest pain and Denies dyspnea Respiratory: Respiratory: Denies dyspnea Gastrointestinal: Gastrointestinal: Reports no additional gastrointestinal complaints Genitourinary: Genitourinary: Denies dysuria Musculoskeletal: Musculoskeletal: Denies neck pain Integumentary/Breasts: Skin/Breast: Denies dry skin Neurologic: Reports Normal hearing present, Denies headache(s) and Denies weakness Psychiatric: Psychiatric: Denies anxiety Endocrine: Endocrine: Denies change in body appearance Hematologic/Lymphatic: Hematologic/Lymphatic: Denies easy bleeding Allergic/Immunologic: Allergic/Immunologic: Denies urticaria PMFSH Past Medical History Medical History (Updated 11/12/22 @ 09:20 by Darrion Chandra MD) Borderline hyperlipidemia Cerebrovascular accident Chest pain Colon cancer screening Hypertension Neuropathy Obesity Pain in joint of right hip Trigeminal neuralgia Surgical History Surgical History (Updated 09/08/22 @ 10:57 by ANGELICA Feliz) Hx laparoscopic cholecystectomy 08/25/22 Social History Social History Smoking status: Never smoker Alcohol intake: never Substance use: never Living arrangements: with family Additional living arrangements comments: DAUGHTER Spiritual care concerns: No Meds Home Medications and Allergies Home Medications Medication Instructions Recorded Confirmed Type aspirin 81 mg tablet,delayed 81 mg PO DAILY 12/12/21 11/03/22 History release (Adult Low Dose Aspirin) atorvastatin 10 mg tablet 10 mg PO HS 12/12/21 11/03/22 History baclofen 10 mg tablet 5 mg PO BID PRN Pain 12/12/21 11/03/22 History carbamazepine 200 mg tablet 350 mg PO Q12H 12/12/21 11/03/22 History lisinopril 10 mg tablet 10 mg PO HS 08/18/22 11/03/22 History multivitamin 1 tablet PO DAILY 08/18/22 11/03/22 History omega 9-bhj-hdj-fish oil 1,200 mg 1 cap PO DAILY 08/18/22 11/03/22 History (144 mg-216 mg) capsule (Fish Oil) ciclopirox 8 % topical solution 1 applic topical DAILY 11/03/22 11/03/22 History Allergies Allergy/AdvReac Type Severity Reaction Status Date / Time No Known Allergies Allergy Verified 11/12/22 08:15 Vital Signs Vital Signs - 24 hr 11/12/22 08:16 Temperature 97 F L Pulse Rate 74 Respiratory Rate 20 Blood Pressure 144/80 H Pulse Oximetry 99 Oxygen Delivery Room Air Exam Const: General: comfortable and no acute distress HENMT: Face/Nose/Sinus: Normal nares present Eyes: General: appearance normal, both eyes and all related structures Neck: Neck: no JVD Resp: Auscultation: clear to auscultation bilaterally Cardio: Rate: regular rate Rhythm: regular rhythm GI: Inspection: non-distended GI Palp: Yes Soft to palpation Skin: General skin exam: normal color Neuro: General: gait normal Speech: normal speech Extrem: General: normal to inspection Psych: Mental Status: mental status grossly normal Assessment and Plan Assessment and plan (1) Colon cancer screening: Code(s): Z12.11 - Encounter for screening for malignant neoplasm of colon Status: Acute Assessment and Plan: colonoscopy
[2022-11-12 09:42] VITALS: BP 92/45; PULSE 63; RESP 13; O2SAT 96
[2022-11-12 09:52] VITALS: BP 111/56; PULSE 61; RESP 15; O2SAT 96
[2022-11-12 10:02] VITALS: BP 119/69; PULSE 58; RESP 16; O2SAT 97
== END 2022-11-12 10:11 | disposition home or self-care (01) ==
PROVIDERS: PCP Physician Assistant; Visit Provider Internal Medicine Gastroenterology
PROC: 0DJD8ZZ Inspection of Lower Intestinal Tract, Via Natural or Artificial Opening Endoscopic (ICD-10-PCS; CPT 45378; principal; 2022-11-12 10:00)
DX: Z12.11 Encounter for screening for malignant neoplasm of colon (principal); K64.8 Other hemorrhoids; I10 Essential (primary) hypertension; Z86.73 Personal history of transient ischemic attack (TIA), and cerebral infarction without residual deficits; G62.9 Polyneuropathy, unspecified; Z79.82 Long term (current) use of aspirin; E66.9 Obesity, unspecified; Z68.36 Body mass index [BMI] 36.0-36.9, adult
CPT/HCPCS: 45378; J7120

== ENCOUNTER 2022-12-19 15:47 | Outpatient (CLI) | payer MEDICAID, SELFPAY ==
--- NOTE | ~2022-12-19 | XR_ITS ---
EXAMINATION: XR hip RT min 2V DATE: 12/19/2022 16:10 INDICATION: Right hip pain. TECHNIQUE: 2 views of right hip were obtained. COMPARISON: Right hip radiographs 11/05/2021 FINDINGS: Bone alignment is normal. No fracture. There is mild right hip osteoarthritis. There is mod erate lower lumbar spondylosis. IMPRESSION: 1. Mild right hip osteoarthritis. Reviewed, dictated and finalized at location E.
== END 2022-12-19 15:48 | disposition home or self-care (01) ==
PROVIDERS: PCP Physician Assistant; Visit Provider Physician Assistant
DX: M25.551 Pain in right hip (principal); M16.11 Unilateral primary osteoarthritis, right hip
CPT/HCPCS: 73502

== ENCOUNTER 2024-04-15 08:37 | Outpatient (CLI) | payer OTHER, SELFPAY ==
--- NOTE | ~2024-04-15 | DEXA_ITS ---
Bone Density Report Name: JAMI BRAVO MISSY José Age: 63 Sex: Female Ethnicity: White Date of : 1960 Indication: postmenopausal; screening for osteoporosis; height loss; hysterectomy; rheumatoid arthritis; Referring Provider: TREVOR, BERTRAND Study: Bone densitometry was performed. Exam Date: April 15, 2024 Accession number: [id number] Bone Density: Region BMD T-score Z-score Classification AP Spine(L1, L2, L3) 1.106 0.8 2.6 Normal Femoral Neck (Left) 0.859 0.1 1.6 Normal Total Hip (Left) 1.178 1.9 3.2 Normal Femoral Neck (Right) 0.908 0.5 2.1 Normal Total Hip (Right) 1.181 2.0 3.2 Normal Total Hip Mean 1.180 2.0 3.2 Normal World Health Organization criteria for BMD impression classify patients as: Normal (T-score at or above -1.0), Osteopenia (T-score between -1.0 and -2.5), or Osteoporosis (T-score at or below -2.5). 10-year Fracture Risk: FRAX not reported because: All T-scores for Spine Total, Hip Total, Femoral Neck at or above -1.0 Clinical Information Provided by Patient: Has rheumatoid arthritis Has used the following medications: Vitamin D, Calcium Has the following medical conditions: Hysterectomy Patient maximum height was 64 Does not regularly consume dairy products Onset of menses at age 8 Number of children 4 Impression: The patient has normal bone mass. Discussion: BONE DENSITY IS ABOVE THE MINIMUM DESIRABLE LEVEL AT ALL SKELETAL SITES TESTED. This patient?s bone mineral density is above the minimum desirable level (T-score -1.0 or better) at all sites measured. The patient should follow a healthful lifestyle (good nutrition with adequate calcium and vitamin D, and appropriate weight-bearing exercise). Follow-Up: Consider repeating this study in 5 years or sooner if there is some new clinical indication. Reported by: OWEN on 04/15/2024 9:19:00 AM. Reviewed, dictated and finalized at location ARoya GARCIA
--- OUTSIDE RECORDS SUMMARY | 2024-04-22 19:39 | XMS_ITS | Encounter Summary ---
Author Organization [facility] Health Address [address] [place] [address] Care Team Providers Care Core Feeder Name Role Phone Thu De Guzman PA-C Primary Care Provider Encounter Details Date Type Department Care Team (Latest Contact Info) Description 02/10/2024 Travel Social History Tobacco Use Types Packs/Day Years Used Date Smoking Tobacco: Never Smokeless Tobacco: Never Sex and Gender Information Value Date Recorded Sex Assigned at Not on file Gender Identity Not on file Sexual Orientation Not on file documented as of this encounter Plan of Treatment Upcoming Encounters Date Type Department Care Team (Late st Contact Info) Description 08/08/2024 9:00 AM CDT Office Visit [facility] - Neurology [address], [place] [id number] Lynette Nichols, [address] [place] [id number] documented as of this encounter Visit Diagnoses Not on filedocumented in this encounter Care Teams Core Feeder Relationship Specialty Start Date End Date Thu De Guzman PA-C [address] [place] [id number] PCP - General Physician Evaporator Operator Molasses 02/10/24 documented as of this encounter
--- OUTSIDE RECORDS SUMMARY | 2024-04-22 19:39 | XMS_ITS | Encounter Summary ---
Author Organization [facility] Health Address [address] [place] [address] Care Team Providers Care Medical Doctor Nuclear Medicine Name Role Phone Thu De Guzman PA-C Primary Care Provider Reason for Visit * Radiology Services (Routine) - Closed Specialty Diagnoses / Procedures Referred By Garett purcell Referred To Contact MRI Diagnoses Trigeminal neuralgia Procedures [place] [address] [place] [id number] [facility] Mri [address] [place] [phone] Referral ID Status Reason Start Date Expiration Date Visits Re quested Visits Authorized [id number] Closed 02/29/2024 05/30/2024 1 1 Encounter Details Date Type Department Care Team (Latest Contact Info) Description 03/06/2024 8:45 AM INTERVENTIONAL RADIOLOGY TECHNOLOGIST - 03/06/2024 11:59 PM [facility] [[email or web address] Hospital Encounter [facility] MRI [address] [place] [phone] Aliza Moe MD [address] [place] [address] Discharge Disposition: Home or Self Care Social History Tobacco Use Types Packs/Day Years Used Date Smoking Tobacco: Never Smokeless Tobacco: Never Sex and Gender Information Value Date Recorded Sex Assigned at Not on file Gender Identity Not on file Sexual Orientation Not on file documented as of this encounter Medications at Time of Discharge Medication Sig Dispensed Refills Start Date End Date amitriptyline (Elavil) 50 MG tablet Take 1 (one) tablet by mouth every evening 90 tablet 4 02/10/2024 Aspirin 81 MG CAPS Take 1 capsule every day by oral route in the morning. atorvastatin (Lipitor) 10 MG tablet Take 1 tablet every day by oral route in the evening for 90 days. baclofen (Lioresal) 10 MG tablet Take 1 (one) tablet by mouth 3 times daily May cause drowsiness. carBAMazepine (TEGretol) 200 MG tablet Take 1.5 tablets every 12 hours by oral route for 90 days. cetirizine (ZyrTEC) 10 MG tablet Take 1 tablet every day by oral route for 30 days. 06/22/2023 fluticasone propionate (Flonase) 50 MCG/ACT nasal spray USE 2 SPRAY(S) IN EACH NOSTRIL ONCE DAILY lisinopril (Prinivil; Zestril) 10 MG tablet Take 1 (one) tablet by mouth once daily 08/18/2023 losartan (Cozaar) 50 MG tablet Take 1 tablet every day by oral route for 90 days. pregabalin (Lyrica) 100 MG capsuleIndications:Trige paola neuralgia Take 1 (one) capsule by mouth 3 times daily 60 capsule 2 02/10/2024 documented as of this encounter Plan of Treatment Upcoming Encounters Date Type Department Care Team (Late st Contact Info) Description 08/08/2024 9:00 AM CDT Office Visit [facility] - Neurology [address] [place] [address], [facility] [place] [phone] Lynette Nichols DO [address] [place] [phone] documented as of this encounter Procedures Procedure Name Priority Date/Time Associated Diagnosis Comments MRI BRAIN WO CONTRAST Routine 03/06/2024 10:35 AM INTERVENTIONAL RADIOLOGY TECHNOLOGIST Trigeminal neuralgia documented in this encounter Results * MRI Brain Wo Contrast (03/06/2024 10:35 AM INTERVENTIONAL RADIOLOGY TECHNOLOGIST) Anatomical Region Laterality Modality Head Magnetic Resonan ce 03/07/2024 3:44 PM INTERVENTIONAL RADIOLOGY TECHNOLOGIST Impressions 03/10/2024 2:24 PM INTERVENTIONAL RADIOLOGY TECHNOLOGIST IMPRESSION: No acute intracranial abnormality including evidence of acute infarction. Incidental note of arachnoid cyst along the left anterior temporal pole as described above. Small focal T2 hyperintensity at the expected location of the right trigeminal nerve nucleus extending along the right dorsolateral josias could be secondary to focal demyelination or gliosis and could be related to of right-sided trigeminal neuralgia. No other evidence of T2/FLAIR hyperintensities noted to suggest demyelinating disease. > Interpreting Provider: Christin Santoro MD on 03/10/2024 2:24 PM Narrative 03/10/2024 2:24 PM INTERVENTIONAL RADIOLOGY TECHNOLOGIST PROCEDURE: ??MRI BRAIN WO CONTRAST, DATE/TIME OF EXAM: ??03/06/2024 10:36 AM, LOCATION ??[facility] INDICATION: G50.0: Trigeminal neuralgia ADDITIONAL CLINICAL INFORMATION: Ordering Provider Reason For Exam: ??Dizziness, persistent/recurrent, cardiac or vascular cause suspected, right-sided Trigeminal neuralgia Technologist Note: Additional: COMPARISON: None. TECHNIQUE: ?? MRI of the brain was performed without contrast, according to standard protocol. Additional T2 weighted,CISS, images obtained through skull base/trigeminal nerve. Additional precontrast T1 MPR age images are also obtained. FINDINGS: No evidence of acute or chronic hemorrhage is identified. No evidence of acute cerebral infarction is seen. Mild generalized parenchymal volume loss. Incidental note of prominent extra-axial space/T2 hyperintense signal along the left anterior temporal pole following CSF signal most likely secondary to benign arachnoid cyst with slight mass effect on the adjacent temporal pole, measuring approximately 3.4 x 2.9 x 3.2 cm (image 18, series 9 image 10, series 13). The ventricles are of normal size, shape, and morphology. No mass effect or midline shift is seen. Scattered cerebral hemispheric white matter FLAIR hyperintensities are a nonspecific finding. Small focal T2 hyperintensity along the right brachium pontis, nonspecific finding (image 7, series 8, image 13, series 14). The corpus callosum and sella appear normal. The posterior fossa, brainstem, and craniocervical junction otherwise appear normal. Other than mild mucosal thickening in the left maxillary sinus visualized portions of the orbits, paranasal sinuses, and mastoids appear normal. Normal flow voids are demonstrated in the carotid arteries and basilar artery. Calvarium appears normal. Mild degenerative changes in the partially visualized cervical spine. No definite vascular loops noted abutting the trigeminal nerves predominantly along the cisternal segments within the limits of this noncontrast study.. No definite atrophy or enlargement of the trigeminal nerves. No large masslike lesions noted along the expected course of the trigeminal nerves bilaterally. Small focal T2 hyperintensity noted at the right middle cerebral peduncle/at the expected origin of the right trigeminal nerve nucleus (image 7, series 13), extending along the right lateral dorsolateral josias nonspecific, (image 50, series 17, image 12, series 18) could be related to focal demyelination or gliosis. Visualized regions of bilateral internal auditory canals, cerebellopontine angles appear normal. Procedure Note Christin Santoro MD - 03/10/2024 PROCEDURE: MRI BRAIN WO CONTRAST, DATE/TIME OF EXAM: 03/06/2024 10:36AM, LOCATION [facility] INDICATION: G50.0: Trigeminal neuralgia ADDITIONAL CLINICAL INFORMATION: Ordering Provider Reason For Exam: Dizziness, persistent/recurrent, cardiac or vascular cause suspected, right-sided Trigeminal neuralgia Technologist Note: Additional: COMPARISON: None. TECHNIQUE: MRI of the brain was performed without contrast, according to standard protocol. Additional T2 weighted,CISS, images obtained through skull base/trigeminal nerve. Additional precontrast T1 MPR age images are also obtained. FINDINGS: No evidence of acute or chronic hemorrhage is identified. No evidence of acute cerebral infarction is seen. Mild generalized parenchymal volume loss. Incidental note of prominent extra-axial space/T2 hyperintensesignal along the left anterior temporal pole following CSF signal most likely secondary to benign arachnoid cyst with slight mass effect on theadjacent temporal pole, measuring approximately 3.4 x 2.9 x 3.2 cm (image 18,series 9 image 10, series 13). The ventricles are of normal size, shape, and morphology. No mass effector midline shift is seen. Scattered cerebral hemispheric white matter FLAIR hyperintensities are a nonspecific finding. Small focal [id number] along the right brachium pontis, nonspecific finding (image 7, series 8, image 13, series 14). The corpus callosum and sella appear normal. The posterior fossa, brainstem, and craniocervical junction otherwise appear normal. Other than mild mucosal thickening in the left maxillary sinusvisualized portions of the orbits, paranasal sinuses, and mastoids appear normal. Normal flow voids are demonstrated in the carotid arteries and basilar artery. Calvarium appears normal. Mild degenerative changes in the partially visualized cervical spine. No definite vascular loops noted abutting the trigeminal nerves predominantly along the cisternal segments within the limits of this noncontrast study.. No definite atrophy or enlargement of the trigeminal nerves. No large masslike lesions noted along the expected course of the trigeminal nerves bilaterally. Small focal T2 hyperintensity noted atthe right middle cerebral peduncle/at the expected origin of the right trigeminal nerve nucleus (image 7, series 13), extending along the right lateral dorsolateral josias nonspecific, (image 50, series 17, image 12, series 18) could be related to focal demyelination or gliosis.Visualized regions of bilateral internal auditory canals, cerebellopontine angles appear normal. IMPRESSION: No acute intracranial abnormality including evidence of acuteinfarction. Incidental note of arachnoid cyst along the left anterior temporal poleas described above. Small focal T2 hyperintensity at the expected location of the right trigeminal nerve nucleus extending along the right dorsolateral ponscould be secondary to focal demyelination or gliosis and could be related toof right-sided trigeminal neuralgia. No other evidence of T2/FLAIR hyperintensities noted to suggest demyelinating disease. > Interpreting Provider: Christin Santoro MD on 03/10/2024 2:24 PM Aliza Moe MD MR ORDERABLES documented in this encounter Visit Diagnoses Diagnosis Trigeminal neuralgia documented in this encounter Care Teams Medical Doctor Nuclear Medicine Relationship Specialty Start Date End Date Thu De Guzman PA-C [address] [place] [phone] PCP - General Physician Lens Mold Setter 02/10/24 documented as of this encounter
--- OUTSIDE RECORDS SUMMARY | 2024-04-22 19:39 | XMS_ITS | Clinical Summary ---
Author Organization [facility] Address [address] [place] [address] Care Team Providers Care Material Flow Engineer Name Role Phone Thu De Guzman PA-C Primary Care Provider Source Comments [facility],non-owned Affiliates and Associated Physician Practices is amultiple site organization consisting of ambulatory clinics and hospital sitesin [place], [place], [place] and [place]. This disclosure is being madepursuant to the Care Everywhere program and may not contain all information available regarding this patient. Last updated 18.[facility] Allergies No known active allergies Medications * Be aware that medications may not be up to date on this document. Alwaysverify current medications with the patient. Medication Sig Dispensed Refills Start Date End Date Status atorvastatin (Lipitor) 10 MG tablet Take 1 tablet every day by oral route in the evening for 90 days. Active carBAMazepine (TEGretol) 200 MG tablet Take 1.5 tablets every 12 hours by oral route for 90 days. Active cetirizine (ZyrTEC) 10 MG tablet Take 1 tablet every day by oral route for 30 days. 06/22/2023 Active fluticasone propionate (Flonase) 50 MCG/ACT nasal spray USE 2 SPRAY(S) IN EACH NOSTRIL ONCE DAILY Active lisinopril (Prinivil; Zestril) 10 MG tablet Take 1 (one) tablet by mouth once daily 08/18/2023 Active losartan (Cozaar) 50 MG tablet Take 1 tablet every day by oral route for 90 days. Active Aspirin 81 MG CAPS Take 1 capsule every day by oral route in the morning. Active baclofen (Lioresal) 10 MG tablet Take 1 (one) tablet by mouth 3 times daily May cause drowsiness. Active amitriptyline (Elavil) 50 MG tablet Take 1 (one) tablet by mouth every evening 90 tablet 4 02/10/2024 Active pregabalin (Lyrica) 100 MG capsuleIndications:T rigeminal neuralgia Take 1 (one) capsule by mouth 3 times daily 60 capsule 2 02/10/2024 Active Encounters Date Type Department Care Team Description 03/09/2024 3:55 PM DENTAL ASSISTANT INSTRUCTOR - 03/09/2024 11:59 PM DENTAL ASSISTANT INSTRUCTOR Hospital Encounter [facility] MRI [address] [place] [phone] Aliza Moe MD Discharge Disposition: Home or Self Care 03/09/2024 Travel 03/06/2024 8:45 AM DENTAL ASSISTANT INSTRUCTOR - 03/06/2024 11:59 PM [facility] Hospital Encounter [facility] MRI [address] [place] [phone] Aliza Moe MD Discharge Disposition: Home or Self Care 03/06/2024 Travel 02/10/2024 9:00 AM CDT Office Visit [facility] - Neurology [address] [facility] [place] [address] Aliza Moe MD Trigeminal neuralgia (Primary Dx); Dizziness; Adjustment insomnia 02/10/2024 Travel from Last 3 Months Social History Tobacco Use Types Packs/Day Years Used Date Smoking Tobacco: Never Smokeless Tobacco: Never Sex and Gender Information Value Date Recorded Sex Assigned at Not on file Gender Identity Not on file Sexual Orientation Not on file Last Filed Vital Signs Vital Sign Reading Time Taken Comments Blood Pressure 146/69 02/10/2024 8:55 AM CDT Pulse 67 02/10/2024 8:55 AM CDT Temperature - - Respiratory Rate - - Oxygen Saturation 94% 02/10/2024 8:55 AM CDT Inhaled Oxygen Concentration - - Weight 96.2 kg (212 lb) 02/10/2024 8:55 AM CDT Height 160 cm (5' 3 ) 02/10/2024 8:55 AM CDT Body Mass Index 37.55 02/10/2024 8:55 AM CDT Plan of Treatment Upcoming Encounters Date Type Department Care Team (Late st Contact Info) Description 08/08/2024 9:00 AM CDT Office Visit [facility] - Neurology [address] [facility] [place] [address] Lynette Nichols, [address] [place] [phone] Health Maintenance Due Date Last Done Comments BONE DENSITY TESTING 1960 COLOGUARD (AGES 45-75) - COL ON CA SCREENING 1958 COLON MONITORING 1958 COLONOSCOPY - COLON CA SCREENING 1958 CT COLONOGRAPHY - COLON CA SCREENING 1958 Colorectal Cancer Screening 1958 FIT - COLON CA SCREENING 1958 FLEX SIG - COLON CA SCREENING 1958 PAP SMEAR 1958 HIV SCREENING 1973 HEPATITIS C SCREENING 11/12/1976 DTAP/TDAP/TD VACCINES (1 - Tdap) 1977 ZOSTER VACCINE (1 of 2) 2008 DEPRESSION SCREENING 04/20/2023 PNEUMOCOCCAL VACCINE 65+ (1 of 1 - PCV) 11/18/2023 COVID-19 VACCINE (1 - 2023-2 5 season) 2023 SCREENING FOR DIABETES 02/10/2024 MAMMOGRAM 10/01/2025 10/02/2023 Respiratory Syncytial Virus (RSV) Vaccine Pt: or over 60 yrs (1 - 1-dose 75+ series) 2033 INFLUENZA VACCINE Completed 01/08/2024, 04/21/2023 HEPATITIS B VACCINE Aged Out No longe r eligible based on patient's age to complete this topic HIB VACCINE Aged Out No longer eligi ble based on patient's age to complete this topic HPV VACCINE Aged Out No longer eligi ble based on patient's age to complete this topic MENINGOCOCCAL VACCINE Aged Out No tj kristina eligible based on patient's age to complete this topic Procedures Procedure Name Priority Date/Time Associated Diagnosis Comments MRI BRAIN WO CONTRAST Routine 03/06/2024 10:35 AM DENTAL ASSISTANT INSTRUCTOR Trigeminal neuralgia from Last 3 Months Results * MRI Brain Wo Contrast (03/06/2024 10:35 AM DENTAL ASSISTANT INSTRUCTOR) Anatomical Region Laterality Modality Head Magnetic Resonan ce 03/07/2024 3:44 PM DENTAL ASSISTANT INSTRUCTOR Impressions 03/10/2024 2:24 PM DENTAL ASSISTANT INSTRUCTOR IMPRESSION: No acute intracranial abnormality including evidence [...] 03/10/2024 2:24 PM Narrative 03/10/2024 2:24 PM DENTAL ASSISTANT INSTRUCTOR PROCEDURE: ??MRI BRAIN WO CONTRAST, DATE/TIME OF EXAM: ??03/06/2024 10:36 AM, LOCATION ??[facility] INDICATION: G50.0: Trigeminal neuralgia ADDITIONAL CLINICAL INFORMATION: [...] CONTRAST, DATE/TIME OF EXAM: 03/06/2024 10:36AM, LOCATION [facility] INDICATION: G50.0: Trigeminal neuralgia ADDITIONAL CLINICAL INFORMATION: [...] hyperintensities are a nonspecific finding. Small focal [id number] along the right brachium pontis, nonspecific finding [...] 2:24 PM Aliza Moe MD MR ORDERABLES from Last 3 Months Care Teams Material Flow Engineer Relationship Specialty Start Date End Date Thu De Guzman PA-C [address] [place] [phone] PCP - General Physician Contamination Consultant 02/10/24
--- OUTSIDE RECORDS SUMMARY | 2024-04-22 19:39 | XMS_ITS | Encounter Summary ---
Author Organization [facility] Health Address [address] [place] [address] Care Team Providers Care Social Work Associate Name Role Phone Thu De Guzman PA-C Primary Care Provider Encounter Details Date Type Department Care Team (Latest Contact Info) Description 03/09/2024 Travel Social History Tobacco Use Types Packs/Day [...] Visit [facility] - Neurology [address] [facility] [place] [phone] Lynette Nichols, [address] [place] [phone] documented as of this encounter Visit Diagnoses Not on filedocumented in this encounter Care Teams Social Work Associate Relationship Specialty Start Date End Date Thu De Guzman PA-C [address] [place] [phone] PCP - General Physician Farmworkers 02/10/24 documented as of this encounter
--- OUTSIDE RECORDS SUMMARY | 2024-04-22 19:39 | XMS_ITS | Encounter Summary ---
Author Organization [facility] Address [address] [place] [address] Care Team Providers Care Shipping Receiving Manager Name Role Phone Thu De Guzman PA-C Primary Care Provider Reason for Referral * Consultation (Routine) - Closed Specialty Diagnoses / Procedures Referred By Garett purcell Referred To Contact Neurological Surgery Diagnoses Trigeminal neuralgia Aliza Moe MD [address] [place] [address] [facility] [place] [address] Referral ID Status Reason Start Date Expiration Date V isits Requested Visits Authorized [id number] Closed Specialty Services Required 02/10/2024 02/09/2025 1 1 * Radiology Services (Routine) - Closed Specialty Diagnoses / Procedures Referred By Garett purcell Referred To Contact MRI Diagnoses Trigeminal neuralgia Procedures MRI Brain Wo Contrast Aliza Moe MD [address] [place] [address] [facility] Mri [address] [place] [address] Referral ID Status Reason Start Date Expiration Date Visits Re quested Visits Authorized [id number] Closed 02/29/2024 05/30/2024 1 1 Reason for Visit * Reason Comments Establish Care Trigeminal Neuralgia Encounter Details Date Type Department Care Team (Late st Contact Info) Description 02/10/2024 9:00 AM CDT Office Visit [facility] - Neurology [address] [facility] [place] [address] Aliza Moe MD [address] [place] [address] Trigeminal neuralgia (Primary Dx); Dizziness; Adjustment insomnia Social History Tobacco Use Types Packs/Day Years Used Date Smoking Tobacco: Never Smokeless Tobacco: Never Sex and Gender Information Value Date Recorded Sex Assigned at Not on file Gender Identity Not on file Sexual Orientation Not on file documented as of this encounter Last Filed Vital Signs Vital Sign Reading [...] Mass Index 37.55 02/10/2024 8:55 AM CDT documented in this encounter Progress Notes * Aliza Moe MD - 02/10/2024 9:04 AM CDT NEUROLOGY NEW PATIENT 02/10/2024 Rina Ramirez 63 year old Chief Complaint: Chief Complaint Patient presents with Establish Care Trigeminal Neuralgia HPI: Thu De Guzman PA-C has requested a neurologic consultation on Rina Ramirez. 63 yr old French female came to the clinic with her daughter, she can't speak Chinese, informationwas taken through her daughter. She stays at home, she has a h/o trigeminal neuralgia, Htn and cholesterol. She is presenting with c/o electric shock like symptoms and pain on the rt side of her facefor 15 years, it was diagnosed in [place], and was started on Tegeretol 4 years ago. It was helping before but it is not helping her much now a days, Pain sometimes lasts for days, Baclofen helps somefor the acute condtion, when she has the pain she has difficulty opening her mouth and eating and talking. Sometimes feel the pain around her eye. Sometimes she feels dizzy off/on on standing or turning to the side. Sleep less at night for abut a year. She has no other focal neurological deficit atthis time. No past medical history on file. No past surgical history on file. Current Outpatient Medications Medication Aspirin 81 MG CAPS atorvastatin (Lipitor) 10 MG tablet baclofen (Lioresal) 10 MG tablet carBAMazepine (TEGretol) 200 MG tablet cetirizine (ZyrTEC) 10 MG tablet fluticasone propionate (Flonase) 50 MCG/ACT nasal spray lisinopril (Prinivil; Zestril) 10 MG tablet losartan (Cozaar) 50 MG tablet No current facility-administered medications for this visit. No Known Allergies Social History Tobacco Use Smoking status: Never Smokeless tobacco: Never Caffeine consumption:no No family history on file. REVIEW OF SYSTEMS: General: no fever/chills, no weight changes, no fatigue HEENT: no SUMMERS, No Head trauma, no eye or ear problem, no nasal discharge. No sore throat. Respiratory: no cough, no SOB, no hemoptysis Cardiovascular: no CP, no palpitation or syncope Gastrointestinal: no NVD, no Hematemesis/Hematochezia or Melena, no constipation Genitourinary: No dysuria/frequency/urgency, no hematuria, no abnormal discharge Skin: no rashes, lumps, sores, itching, dryness, color changes, no changes in hair or nails Musculoskeletal: no contracture. No joint pain or stiffness Neurological: no numbness, no tingling and weakness of hands with breakthrough symptoms lately Psychiatric: no depression or suicidal thought, no anxiety, no delusion or hallucination Detailed Neuro/Psych Review: (negative unless bold type) No change in thinking, mood or memory No anxiety, depression, difficulty sleeping No involuntary movements, cramps or tremors No head trauma, seizures or strokes No headache, stiff neck, LBP or LOC No double/blurred vision, slurred speech, trouble swallowing mild dizziness, lightheadedness, vertigo or fainting numbess, tingling or weakness of any body part. No bowel or bladder incontinence EXAMINATION: BP 146/69 Pulse 67 Ht 1.6 m (5' 3 ) Wt 96.2 kg (212 lb) SpO2 94% General: General appearance: well developed, in no distress Cardiovascular- extremities warm and well perfused, no edema Neurological Examination: Mental Status: Awake, Alert. Oriented x3. Follows commands, has normal fund of knowledge, attention, short term recall, fluency, comprehension and insight. Cranial Nerves: Visual decker are full without hemineglect. Pupils react equally to light. Extraocular movements are full. Facial sensation intact V1-V3. Facial movement intact, symmetric. Hearing intact to conversation. Nystagmus is not present. Palate elevates symmetrically. Shoulder shrug symmetric. Tongue midline. Motor: No orbiting or pronator drift. Strength is symmetric proximally and distally. Good rapid alternating and fine finger movements. No asterixis, tremor or myoclonus. Normal tone. No atrophy. Sensation: Pain on rt face to light touch, temperature, and vibration. Reflexes: DTRs 2+ throughout. Plantar responses downgoing. Coordination/Cerebellar: Intact to [id number], aoai-jm-rusa exam. Gait: walks independently, normal tandem gait and Romberg test. Imaging/Laboratory review: Ordered MRI head w/o for trigeminal neuralgia Impression: 1) trigeminal neuralgia 2) dizziness 3) insomnia Discussion: D/w pt clinical diagnosis of Trigeminal neuralgia, medication option and side effects of medication. The total time today spent was 40 minutes performing chart prep, review of data and visit with the patient. I made the following recommendations: 1) MRI head w/o for trigeminal neuralgia 2) Elavil 50 mg qhs for sleep Referred to neurosurgery for trigeminal neuralgia 3) Home meds 4) follow up in 6 months. Aliza Moe MD documented in this encounter Plan of Treatment Upcoming Encounters Date Type Department Care Team (Late st Contact Info) Description 08/08/2024 9:00 AM CDT Office Visit [facility] - Neurology [address] [place] [address], [facility] [place] [phone] Lynette Nichols DO [address] [place] [phone] Scheduled Referrals Name Type Priority Associated Diagnoses Order Schedule Ref to Neurosurgery - [facility] Outpatient Referral Routine Trigeminal neuralgia Ordered: 02/10/2024 documented as of this encounter Results * MRI Brain Wo Contrast (03/06/2024 10:35 AM PREFITTER) Anatomical Region Laterality Modality Head Magnetic Resonan ce 03/07/2024 3:44 PM PREFITTER Impressions 03/10/2024 2:24 PM PREFITTER IMPRESSION: No acute intracranial abnormality including evidence [...] 03/10/2024 2:24 PM Narrative 03/10/2024 2:24 PM PREFITTER PROCEDURE: ??MRI BRAIN WO CONTRAST, DATE/TIME OF EXAM: ??03/06/2024 10:36 AM, LOCATION ??[facility] INDICATION: G50.0: Trigeminal neuralgia ADDITIONAL [...] CONTRAST, DATE/TIME OF EXAM: 03/06/2024 10:36AM, LOCATION [facility] INDICATION: G50.0: Trigeminal neuralgia ADDITIONAL [...] hyperintensities are a nonspecific finding. Small focal [id number] along the right brachium pontis, nonspecific finding [...] in this encounter Visit Diagnoses Diagnosis Trigeminal neuralgia- Primary Dizziness Dizziness and giddiness Adjustment insomnia Transient disorder of initiating or maintaining sleep Trigeminal neuralgia documented in this encounter Care Teams Shipping Receiving Manager Relationship Specialty Start Date End Date Thu De Guzman PA-C [address] [place] [phone] PCP - General Physician Signal Timer 02/10/24 documented as of this encounter
--- OUTSIDE RECORDS SUMMARY | 2024-04-22 19:39 | XMS_ITS | Patient Health Summary ---
Author Organization [facility] Address [address] [place] [address] Care Team Providers Care Insulator Tester Name Role Phone Thu De Guzman PA-C Primary Care Provider Note from [facility],non-owned Affiliates and Associated Physician Practices is amultiple site organization consisting of ambulatory clinics and hospital sitesin [place], [place], [place] and [place]. This disclosure is being madepursuant to the Care Everywhere program and may not contain all information available regarding this patient. Last updated 18.[facility] [employer] Allergies No known active allergies Medications * Be aware that medications may not be up to date on this document. Alwaysverify current medications with the patient. * atorvastatin (Lipitor) 10 MG tablet Take 1 tablet every day by oral route in the evening for 90 days. * carBAMazepine (TEGretol) 200 MG tablet Take 1.5 tablets every 12 hours by oral route for 90 days. * cetirizine (ZyrTEC) 10 MG tablet(Started 06/22/2023) Take 1 tablet every day by oral route for 30 days. * fluticasone propionate (Flonase) 50 MCG/ACT nasal spray USE 2 SPRAY(S) IN EACH NOSTRIL ONCE DAILY * lisinopril (Prinivil; Zestril) 10 MG tablet(Started 08/18/2023) Take 1 (one) tablet by mouth once daily * losartan (Cozaar) 50 MG tablet Take 1 tablet every day by oral route for 90 days. * Aspirin 81 MG CAPS Take 1 capsule every day by oral route in the morning. * baclofen (Lioresal) 10 MG tablet Take 1 (one) tablet by mouth 3 times daily May cause drowsiness. * amitriptyline (Elavil) 50 MG tablet(Started 02/10/2024) Take 1 (one) tablet by mouth every evening 4 refills by 02/09/2025 * pregabalin (Lyrica) 100 MG capsule(Started 02/10/2024) Take 1 (one) capsule by mouth 3 times daily 2 refills by 08/08/2024 Social History Tobacco Use Types Packs/Day Years [...] Mass Index 37.55 02/10/2024 8:55 AM CDT Procedures * MRI BRAIN WO CONTRAST(Performed 03/06/2024) Performed for Trigeminal neuralgia Results * MRI Brain Wo Contrast (03/06/2024 10:35 AM EXPERIMENTAL DISPLAY BUILDER) Anatomical Region Laterality Modality Head Magnetic Resonan ce 03/07/2024 3:44 PM EXPERIMENTAL DISPLAY BUILDER Impressions 03/10/2024 2:24 PM EXPERIMENTAL DISPLAY BUILDER IMPRESSION: No acute intracranial abnormality including evidence [...] to suggest demyelinating disease. > Interpreting Provider: Chrsitin Santoro MD on 03/10/2024 2:24 PM Narrative 03/10/2024 2:24 PM EXPERIMENTAL DISPLAY BUILDER PROCEDURE: ??MRI BRAIN WO CONTRAST, DATE/TIME OF EXAM: ??03/06/2024 10:36 AM, LOCATION ??[facility] INDICATION: G50.0: Trigeminal neuralgia ADDITIONAL [...] CONTRAST, DATE/TIME OF EXAM: 03/06/2024 10:36AM, LOCATION [facility] INDICATION: G50.0: Trigeminal neuralgia ADDITIONAL [...] hyperintensities are a nonspecific finding. Small focal [id number] along the right brachium pontis, nonspecific finding [...] 2:24 PM Aliza Moe MD MR ORDERABLES Care Teams Insulator Tester Relationship Specialty Start Date End Date Thu De Guzman PA-C [address] [place] [phone] PCP - General Physician Corn Breeder 02/10/24
--- OUTSIDE RECORDS SUMMARY | 2024-04-22 19:39 | XMS_ITS | Encounter Summary ---
Author Organization [facility] Health Address [address] [facility] [place] [address] Care Team Providers Care Sprinkler Fitter Apprentice Name Role Phone Thu De Guzman PA-C Primary Care Provider Encounter Details Date Type Department Care Team (Latest Contact Info) Description 03/09/2024 3:55 PM DELIVERY ENGINEER - 03/09/2024 11:59 PM [facility] Hospital Encounter [facility] [address] [place] [phone] Aliza Moe MD [address] [place] [address] Discharge Disposition: Home or Self Care Social [...] Office Visit [facility] - Neurology [address] [place] [address], [place] [address] Lynette Nichols DO [address] [place] [phone] documented as of this encounter Visit Diagnoses Not on filedocumented in this encounter Care Teams Sprinkler Fitter Apprentice Relationship Specialty Start Date End Date Thu De Guzman PA-C [address] [place] [phone] PCP - General Physician Welder Experimental 02/10/24 documented as of this encounter
--- OUTSIDE RECORDS SUMMARY | 2024-04-22 19:39 | XMS_ITS | Encounter Summary ---
Author Organization [facility] Health Address [address] [place] [address] Care Team Providers Care Research Neuropsychologist Name Role Phone Thu De Guzman PA-C Primary Care Provider Encounter Details Date Type Department Care Team (Latest Contact Info) Description 03/06/2024 Travel Social History Tobacco Use Types Packs/Day [...] Visit [facility] - [facility]rology [address] [facility], [place] [phone] Lynette Nichols, [address] [place] [phone] documented as of this encounter Visit Diagnoses Not on filedocumented in this encounter Care Teams Research Neuropsychologist Relationship Specialty Start Date End Date Thu De Guzman PA-C [address] [place] [phone] PCP - General Physician Joiner Apprentice 02/10/24 documented as of this encounter
--- OUTSIDE RECORDS SUMMARY | 2024-04-22 19:39 | XMS_ITS | Referral Summary ---
Author Organization [facility] Address [address] [facility] [place] [address] Care Team Providers Care Traffic Routing Engineer Name Role Phone Thu De Guzman PA-C Primary Care Provider Source Comments [facility],non-owned Affiliates and Associated Physician Practices is amultiple site organization consisting of ambulatory clinics and hospital sitesin [place], [place], [place] and [place]. This disclosure is being madepursuant to the Care Everywhere program and may not contain all information available regarding this patient. Last updated 18.[facility] Encounters Date Type Department Care Team Description 03/09/2024 Travel 03/09/2024 3:55 PM MINING ENGINEERING TECHNOLOGIST - 03/09/2024 11:59 PM [facility] Hospital Encounter [facility] MRI [address] [place] [address] Aliza Moe MD Discharge Disposition: Home or Self Care 03/06/2024 Travel 03/06/2024 8:45 AM MINING ENGINEERING TECHNOLOGIST - 03/06/2024 11:59 PM [facility] Hospital Encounter [facility] MRI [address] [place] [address] Aliza Moe MD Discharge Disposition: Home or Self Care 02/10/2024 Travel 02/10/2024 9:00 AM CDT Office Visit [facility] - Neurology [address] [facility] [place] [address] Aliza Moe MD Trigeminal neuralgia (Primary Dx); Dizziness; Adjustment insomnia from Last 3 Months Allergies No known active allergies Medications * [...] times daily 60 capsule 2 02/10/2024 Active Social History Tobacco Use Types Packs/Day Years [...] Description 08/08/2024 9:00 AM CDT Office Visit [facility] - Neurology [address] [facility] [place] [address] Lynette Nichols, [address] [place] [address] Procedures Procedure Name Priority Date/Time Associated Diagnosis Comments MRI BRAIN WO CONTRAST Routine 03/06/2024 10:35 AM MINING ENGINEERING TECHNOLOGIST Trigeminal neuralgia from Last 3 Months Results * MRI Brain Wo Contrast (03/06/2024 10:35 AM MINING ENGINEERING TECHNOLOGIST) Anatomical Region Laterality Modality Head Magnetic Resonan ce 03/07/2024 3:4 4 PM MINING ENGINEERING TECHNOLOGIST Impressions 03/10/2024 2:24 PM MINING ENGINEERING TECHNOLOGIST IMPRESSION: No acute intracranial abnormality including [...] 03/10/2024 2:24 PM Narrative 03/10/2024 2:24 PM MINING ENGINEERING TECHNOLOGIST PROCEDURE: ??MRI BRAIN WO CONTRAST, DATE/TIME OF EXAM: ??03/06/2024 10:36 AM, LOCATION ??[facility] INDICATION: G50.0: Trigeminal neuralgia ADDITIONAL CLINICAL [...] CONTRAST, DATE/TIME OF EXAM: 03/06/2024 10:36AM, LOCATION [facility] INDICATION: G50.0: Trigeminal neuralgia ADDITIONAL CLINICAL [...] hyperintensities are a nonspecific finding. Small focal [id number] along the right brachium pontis, nonspecific finding [...] to suggest demyelinating disease. > Interpreting Provider: Chrisitn Santoro MD on 03/10/2024 2:24 PM Aliza Moe MD MR ORDERABLES from Last 3 Months Care Teams Traffic Routing Engineer Relationship Specialty Start Date End Date Thu De Guzman PA-C [address] [place] [phone] PCP - General Physician Ophthalmic Pathologist 02/10/24
--- OUTSIDE RECORDS SUMMARY | 2024-04-22 19:39 | XMS_ITS | Encounter Summary ---
Author Organization [facility] Health Address [address] [place] [address] Care Team Providers Care Copier And Printer Field Technician Name Role Phone Unavailable Primary Care Provider Unavailabl e Encounter Details Date Type Department Care Team (Latest Contact Info) Description 06/03/2023 Travel Social History Tobacco Use Types Packs/Day Years Used Date Smoking Tobacco: Never Assessed Sex and Gender Information Value Date Recorded Sex Assigned at Not on file Gender Identity Not on file Sexual Orientation Not on file documented as of this encounter Plan of Treatment Upcoming Encounters Date Type Department Care Team (Late st Contact Info) Description 08/08/2024 9:00 AM CDT Office Visit [facility] - Neurology [address] [place] [address], [place] [phone] Lynette Nichols, DO [address] [place] [phone] documented as of this encounter Visit Diagnoses Not on filedocumented in this encounter
--- OUTSIDE RECORDS SUMMARY | 2024-04-22 19:40 | XMS_ITS | Encounter Summary ---
Author Organization [facility] Healthcare Address [address] [place] [address] Care Team Providers Care Assisted Sales Representative Name Role Phone Thu De Guzman Primary Care Provider + Encounter Details Date Type Department Care Team (Latest Contact Info) Description 02/08/2024 12:10 AM CDT - 02/08/2024 11:59 PM CDT Hospital Encounter [facility] Outside Images [address] [place] [id number] Discharge Disposition: Discharge to home or self care Social History Tobacco Use Types Packs/Day Years Used Date Smoking Tobacco: Never Assessed Comments Unknown Sex and Gender Information Value Date Recorded Sex Assigned at Not on file Legal Sex Female 10:26 AM CDT Gender Identity Female 06/30/2023 10:07 AM CDT Sexual Orientation Not on file documented as of this encounter Medications at Time of Discharge cetirizine (ZyrTEC) 10 mg tablet Take 1 tablet every day by oral route for 30 days. 06/22/2023 lisinopriL (PRINIVIL,ZESTRIL ) 10 mg tablet Take 1 tablet (10 mg total) by mouth daily 08/18/2023 documented as of this encounter Discharge Disposition Disposition Code Departure Means Destination Discharge to home or self care documented in this encounter Plan of Treatment Not on file documented as of this encounter Procedures Procedure Name Priority Date/Time Associated Diagnosis Comments XR TRANSFER OF OUTSIDE FILMS Routine 02/08/2024 12:10 AM CDT documented in this encounter Results * XR Outside Reference (02/08/2024 12:10 AM CDT) Narrative LAEX_MATEO - 02/15/2024 10:40 AM CDT This order has been auto-finalized and does not contain a result. us Provider Transcribed Order IMG XR PROCEDURES Fin al Result [id number] documented in this encounter Visit Diagnoses Not on filedocumented in this encounter Care Teams Assisted Sales Representative Relationship Specialty Start Date End Date Tuh De Guzman PA [address] [place] [phone] PCP - General Physician Senior Oracle Soa Developer 06/30/23 documented as of this encounter
--- OUTSIDE RECORDS SUMMARY | 2024-04-22 19:40 | XMS_ITS | Encounter Summary ---
Author Organization [facility] Healthcare Address [address] [place] [address] Care Team Providers Care Innovation Manager Name Role Phone Thu De Guzman Primary Care Provider + Reason for Referral * Consultation (Routine) - Authorized Specialty Diagnoses / Procedures Referred By Contac t Referred To Contact Orthopedic Surgery Diagnoses History of bilateral knee arthroplasty Hodan Whiteside PA [address] [place] [place] [address] Phone: tel: fax: [facility] (All Locations) Referral ID Status Reason Start Date Expiration Date Visits Requested Visits Authorized [id number] Authorized Specialty Services Required 03/30/2025 1 1 Question Answer Please select the performing region: [facility] (All Locations) [167] # of visits: 1 Comments EVALUATE AND TREAT BILATERAL KNEE RECON UNTANT MACHINE PROCESSING Reason for Visit * Reason Comments Pain * Consultation (Routine) - Closed Specialty Diagnoses / Procedures Referred By Contac t Referred To Contact Orthopedic Surgery Diagnoses Closed fracture of right foot, initial encounter Thu De Guzman PA [address] [place] [address] Phone: tel: fax: Hodan Whiteside PA [address] [place] [address] Phone: tel: fax: Referral ID Status Reason Start Date Expiration Date V isits Requested Visits Authorized [id number] Closed Specialty Services Required 02/11/2024 03/12/2025 1 1 Encounter Details Date Type Department Care Team (Late st Contact Info) Description 02/29/2024 1:00 PM ACCOUNTANT MACHINE PROCESSING Office Visit [facility] Orthopedics and Sports Medicine [address] [place] [address] Hodan Whiteside PA [address] [place] [address] [address] [place] [address] Right foot pain (Primary Dx); Closed displaced fracture of cuboid of right foot, initial encounter; Other bilateral secondary osteoarthritis of knee; History of bilateral knee arthroplasty Social History Tobacco Use Types Packs/Day Years Used Date Smoking Tobacco: Never Assessed Comments Unknown Sex and Gender Information Value Date Recorded Sex Assigned at Not on file Legal Sex Female 10:26 AM CDT Gender Identity Female 06/30/2023 10:07 AM CDT Sexual Orientation Not on file documented as of this encounter Last Filed Vital Signs Vital Sign Reading Time Taken Comments Blood Pressure - - Pulse - - Temperature - - Respiratory Rate - - Oxygen Saturation - - Inhaled Oxygen Concentration - - Weight 95.3 kg (210 lb) 02/29/2024 1:02 PM ACCOUNTANT MACHINE PROCESSING Height 157.5 cm (5' 2 ) 02/29/2024 1:02 PM ACCOUNTANT MACHINE PROCESSING Body Mass Index 38.41 02/29/2024 1:02 PM ACCOUNTANT MACHINE PROCESSING documented in this encounter Ordered Prescriptions Prescription Sig Dispense Quantity Refills Last Filled Start Date End Date meloxicam (MOBIC) 7.5 mg tabletIndications: Right foot pain Take 1 tablet (7.5 mg total) by mouth daily 30 tablet 02/29/2024 03/28/2024 documented in this encounter Progress Notes * Hodan Whiteside PA - 02/29/2024 1:00 PM CST Images from the original note were not included. NEW PATIENT VISIT Subjective CHIEF COMPLAINT She had concerns including Pain of the Right Foot. HISTORY OF PRESENT ILLNESS Patient is presenting today for re-evaluation of right foot pain. She is here today with her daughter. She is here for urgent care follow-up. Unfortunately, the patient fell on 02/07/2024 after getting out of her bathtub. [place] and states ever since her procedures she has felt her knees are unstable and frequently popout of place. On 02/07/2024, she states her right knee gave out on her and she fell onto the right lower extremity. She had pain in her calf, knee, and foot following this. At the Urgent Care, she had imaging taken of her right foot and knee as well as the left knee. Imaging was negative for complic ation a bilateral knee replacements. It did demonstrate a possible avulsion fracture of the right cuboid. She was placed in a short boot and sent for orthopedic follow up. Patient reports continued pain in the right foot today, which is worse with walking and better with rest and elevation. She also continues to have pain in the calf. No new trauma or injuries since her initial fall. She does report occasional numbness and tingling in the right great toe. No prior history of trauma or surgeriesto the right foot. PAST MEDICAL HISTORY She has no past medical history on file. PAST SURGICAL HISTORY She has no past surgical history on file. MEDICATIONS She has a current medication list which includes the following prescription(s): meloxicam. ALLERGIES She has no known allergies. SOCIAL HISTORY She lives at home with her daughter and grandchildren. No history of smoking or alcohol use. FAMILY HISTORY No family history on file. REVIEW OF SYSTEMS Constitutional: Negative for chills and fever. HENT: Negative for ear pain and sore throat. Eyes: Negative for pain and visual disturbance. Respiratory: Negative for shortness of breath and wheezing. Cardiovascular: Negative for chest pain and palpitations. Gastrointestinal: Negative for abdominal distention and abdominal pain. Genitourinary: Negative for dysuria and hematuria. Skin: Negative for pallor and rash. Neurological: Negative for syncope and numbness. Objective PHYSICAL EXAM Ht 157.5 cm (5' 2 ) Wt 95.3 kg (210 lb) BMI 38.41 kg/m?? Gen: No acute distress, well developed Head: Atraumatic Eyes: EOM are normal Ears: Hearing intact to spoken word Cardiovascular: Rate is regular Pulmonary: No respiratory distress Adominal: soft Neurologic: Patient oriented to person, place and time Psychiatric: Normal mood and affect MSK: On inspection of the right foot, there is no deformity, wound, erythema, ecchymosis. She is diffusely tender to palpation over the midfoot. She has pain with passive motion of the midfoot joints. She has normal strength and range of motion of the right ankle but does experience pain with resisted range of motion. She was grossly neurovascularly intact. The Achilles is intact. REVIEW OF X-RAYS/STUDIES/LABS Imaging from 02/11/2024 of the right foot indicates possible right cuboid avulsion fracture. On re-evaluation of the fracture from imaging today, the avulsion fracture is not well visualized. No other signs of acute fracture or other acute injury. Diagnoses and all orders for this visit: Right foot pain (Primary) - XR Foot Right 3+ Vw; Future - meloxicam (MOBIC) 7.5 mg tablet; Take 1 tablet (7.5 mg total) by mouth daily Closed displaced fracture of cuboid of right foot, initial encounter - Ambulatory referral to Orthopedic Surgery Plan: I reviewed x-rays today with the patient. It does appear that she had a small avulsion fracture of the right cuboid. There is no evidence of other acute fracture or other acute injury. Because the patient is still diffusely tender today on exam, I would like to keep her weight-bearing as tolerated in the Cam walking boot for at least 2 more weeks. In 2 weeks, she may slowly try to transition out of the boot. If she still has pain, they will notify us. We may consider further imaging if her painpersists. She will follow up with me in 4 weeks. We may consider physical therapy at that time as well. The patient also requested to be seen for her knees. I will send a script for meloxicam to help with pain and swelling in the bilateral knees. I will further discuss this with Dr. Sanchez to determine if he would like to take over care for her knees or if he would like her to go to reconstruction specialists. The patient and her daughter expressed understanding and agreement with the plan. SHANELL Hines UNTANT MACHINE PROCESSING documented in this encounter Miscellaneous Notes * Addendum Note - Johann Juarez MA - 02/29/2024 1:00 PM ACCOUNTANT MACHINE PROCESSING Addended by: JOHANN JUAREZ on: 02/29/2024 02:04 PM Modules accepted: Orders UNTANT MACHINE PROCESSING documented in this encounter Plan of Treatment Scheduled Referrals Name Type Priority Associated Diagnoses Orde r Schedule Ambulatory referral to Orthopedic Surgery Outpatient Referral Routine History of bilateral knee arthroplasty Expected: 03/14/2024 (Approximate), Expires: 02/28/2025 documented as of this encounter Results * XR Foot Right 3+ Vw (02/29/2024 12:05 PM ACCOUNTANT MACHINE PROCESSING) Anatomical Region Laterality Modality Lower Extremities, Foot Right Computed Radiography 03/02/2024 10:4 8 AM ACCOUNTANT MACHINE PROCESSING Narrative 03/02/2024 10:49 AM ACCOUNTANT MACHINE PROCESSING EXAM DESCRIPTION: XR FOOT RIGHT 3 OR MORE VIEWS REASON FOR STUDY: RIGHT FOOT PAIN ?? Acute right foot pain, recent injury, seeing Dr Joyner after for appointment ?? FINDINGS: Three views of the right foot are submitted for interpretation. ?? Comparison 02/08/2024. ??Mild great toe metatarsophalangeal joint osteoarthritis. ??No fracture. ??Dorsal and plantar calcaneal spurs are present. IMPRESSION: Mild great toe metatarsophalangeal joint osteoarthritis. Dorsal and plantar calcaneal spurs. THIS IS AN ELECTRONICALLY VERIFIED FINAL REPORT 03/02/2024 10:49 AM - Electronically signed by ??Rubén Jaeger M.D. D: ??03/02/2024 10:49 AM T: Report ID: [id number] Reading Location: ??[id number] Procedure Note Rubén Jaeger MD - 03/02/2024 EXAM DESCRIPTION: XR FOOT RIGHT 3 OR MORE VIEWS REASON FOR STUDY: RIGHT FOOT PAIN Acute right foot pain, recent injury, seeing Dr Joyner after forappointment FINDINGS: Three views of the right foot are submitted for interpretation. Comparison 02/08/2024. Mild great toe metatarsophalangeal joint osteoarthritis. No fracture. Dorsal and plantar calcaneal spurs arepresent. IMPRESSION: Mild great toe metatarsophalangeal joint osteoarthritis. Dorsal and plantar calcaneal spurs. THIS IS AN ELECTRONICALLY VERIFIED FINAL REPORT 03/02/2024 10:49 AM - Electronically signed by Rubén Jaeger M.D. T: Report ID: [id number] Reading Location: [place] [address] Hodan REECE IMG XR PROCEDURES Final Re sult documented in this encounter Visit Diagnoses Diagnosis Right foot pain- Primary Pain in soft tissues of limb Closed displaced fracture of cuboid of right foot, initial encounter Other bilateral secondary osteoarthritis of knee History of bilateral knee arthroplasty Right foot pain Pain in soft tissues of limb documented in this encounter Orders Outpatient Referral Count Last Ordered Date st Ordered Date AMB REFERRAL TO ORTHOPEDIC SURGERY 1 2023 documented in this encounter Care Teams Innovation Manager Relationship Specialty Start Date End Date Thu De Guzman PA [address] [place] [id number] PCP - General Physician Electrical Instrument Technician 06/30/23 documented as of this encounter
--- OUTSIDE RECORDS SUMMARY | 2024-04-22 19:40 | XMS_ITS | Encounter Summary ---
Author Organization [facility] Address [address] [place] [address] Care Team Providers Care Mission Planner Name Role Phone No, Physician Primary Care Provider [phone] Encounter Details Date Type Department Care Team (Late st Contact Info) Description 12/16/2021 Orders Only [facility] Cardiology [address] [place] [phone] Misbah Bell MD [address] [place], [place] [id number] Social History Tobacco Use Types Packs/Day Years Used Date Smoking Tobacco: Never Assessed Comments Unknown Sex and Gender Information Value Date Recorded Sex Assigned at Not on file Legal Sex Female 10:26 AM CDT Gender Identity Female 06/30/2023 10:07 AM CDT Sexual Orientation Not on file documented as of this encounter Plan of Treatment Not on file documented as of this encounter Procedures Procedure Name Priority Date/Time Associated Diagnosis Comments CARDIOLOGY DOCUMENT SCAN Routine 12/16/2021 documented in this encounter Results * Cardiology Document Scan (12/16/2021) Anatomical Region Laterality Modality Other us Misbah Bell MD [facility] CARDIAC SERVICES PROC EDURES Final Result documented in this encounter Visit Diagnoses Not on filedocumented in this encounter Care Teams Mission Planner Relationship Specialty Start Date End Date No, Physician PCP - General 12/16/21 06/29/23 documented as of this encounter
--- OUTSIDE RECORDS SUMMARY | 2024-04-22 19:40 | XMS_ITS | Encounter Summary ---
Author Organization [facility] Healthcare Address [address] [place] [address] Care Team Providers Care Mold Unloader Name Role Phone Thu De Guzman Primary Care Provider + Reason for Referral * MRI/CAT/PET Scan (Routine) - Closed Specialty Diagnoses / Procedures Referred By Sonac t Referred To Contact Radiology Diagnoses Chronic sinusitis, unspecified location Procedures CT Sinus WO Contrast Patrick Mckoy MD [address] [place] [address] Phone: tel: fax: [address] [phone] Referral ID Status Reason Start Date Expiration Date Visits Re quested Visits Authorized [id number] Closed 07/30/2023 08/28/2024 1 1 Reason for Visit * MRI/CAT/PET Scan (Routine) - Closed Specialty Diagnoses / Procedures Referred By Contac t Referred To Contact Radiology Diagnoses Chronic sinusitis, unspecified location Procedures CT Sinus WO Contrast Patrick Mckoy MD [address] [place] [address] Phone: tel: fax: [address] [phone] Referral ID Status Reason Start Date Expiration Date Visits Re quested Visits Authorized [id number] Closed 07/30/2023 08/28/2024 1 1 Encounter Details Date Type Department Care Team (Latest Contact Info) Description 08/13/2023 2:45 PM CDT - 08/13/2023 11:59 PM CDT Hospital Encounter [facility] [id number] [place] [address] Chronic sinusitis, unspecified location Discharge Disposition: Discharge to home or self [...] by oral route for 30 days. 06/22/2023 documented as of this encounter Discharge Disposition Disposition Code Departure Means Destination Discharge to home or self care documented in this encounter Plan of Treatment Not on file documented as of this encounter Procedures Procedure Name Priority Date/Time Associated Diagnosis Comments CT SINUS WO CONTRAST Schedule Routine, Read Routine (OP Routine) 08/13/2023 3:16 PM CDT Chronic sinusitis, unspecified location documented in this encounter Results * CT Sinus WO Contrast (08/13/2023 3:16 PM CDT) Anatomical Region Laterality Modality Head and Neck N/A Computed Tomogra phy 08/14/2023 8:49 AM CDT Narrative 08/14/2023 8:55 AM CDT EXAM DESCRIPTION: ?? CT SINUS WO CONTRAST REASON FOR STUDY: ?? Chronic sinusitis ?? Patient with chronic sinusitis for the last 4 years that is worsening with pressure to the back of her head. Patient has a history of 5 nasal surgeries after a failed surgery to fix nose after an accident. Patient has leaking to nasal cavity when she ?? bends over. ? TECHNIQUE: Noncontrast scanning through the paranasal sinuses using bone algorithm. ??Reconstructed MPR images reviewed. ??All images stored on PACS. ?? Automated exposure control was used as a dose optimization technique for this examination. COMPARISON: ?? None available. FINDINGS: Mucosal thickening in the bilateral frontal sinuses, [id number]-right. ??There is some mucosal thickening along the frontoethmoidal recess on both sides Mild scattered mucosal thickening in the bilateral ethmoid air cells with subtle foamy secretions. ?? Sphenoid sinus septum deviates to the left resulting in a dominant right and non dominant left sinus. ??Subtle foamy secretions in the lateral margin of the right sphenoid sinus. ??Mucosal thickening about the right sphenoid ostium and sphenoethmoidal recess. ??Left sphenoid ostium and sphenoethmoidal recess is predominantly clear. Right maxillary sinus with mild circumferential mucosal thickening and some foamy secretions. ??Note made of Bina cell. ??Opacified ostium and infundibulum of the right ostiomeatal complex. ??Left maxillary sinus with mild mucosal thickening. ??Note made of Bina cell. ??Mucosal thickening about the ostium of the left ostiomeatal complex. Chronic nasal bone deformity. ??Nasal septum has a biconvex curvature. ??There is mild scattered mucosal thickening in the nasal cavity on both sides. The bilateral mastoid air cells are predominantly clear. ??Temporomandibular joints are symmetric and the zygomatic arches are intact. ??The left basisphenoid 1 cm well-circumscribed lucent area with internal subtle calcific spicules could reflect arrested pneumatization of the basisphenoid. ??Request correlation with historical imaging studies to demonstrate stability and exclude other possibilities. The bilateral mastoid air cells are predominantly clear. ??The maxilla is edentulous. ??Note made of left palatine tonsilliths. IMPRESSION: ?? 1. ?? There are inflammatory changes in the paranasal sinuses as described. ?? Foamy secretions can be seen with acute on chronic sinusitis in the proper clinical scenario. 2. ?? Additional findings as above. THIS IS AN ELECTRONICALLY VERIFIED FINAL REPORT 08/14/2023 8:55 AM - Electronically signed by ??Bright ROACH D: ??08/14/2023 8:55 AM T: Report ID: [id number] Reading Location: ??[id number] Procedure Note Bright Martinez DO - 08/14/2023 EXAM DESCRIPTION: CT SINUS WO CONTRAST REASON FOR STUDY: Chronic sinusitis Patient with chronic sinusitis for the last 4 years that is worsening with pressure to the back of her head. Patient has a history of 5 nasalsurgeries after a failed surgery to fix nose after an accident. Patient has leakingto nasal cavity when she bends over. TECHNIQUE: Noncontrast scanning through the paranasal sinuses using bone algorithm. Reconstructed MPR images reviewed. All images stored on PACS. Automated exposure control was used as a dose optimization technique forthis examination. COMPARISON: None available. FINDINGS: Mucosal thickening in the bilateral frontal sinuses, [id number]-right. There is some mucosal thickening along the frontoethmoidal recess on both sides Mild scattered mucosal thickening in the bilateral ethmoid air cells with subtle foamy secretions. Sphenoid sinus septum deviates to the left resulting in a dominant rightand non dominant left sinus. Subtle foamy secretions in the lateral margin ofthe right sphenoid sinus. Mucosal thickening about the right sphenoid ostiumand sphenoethmoidal recess. Left sphenoid ostium and sphenoethmoidal recessis predominantly clear. Right maxillary sinus with mild circumferential mucosal thickening andsome foamy secretions. Note made of Bina cell. Opacified ostium and infundibulum of the right ostiomeatal complex. Left maxillary sinus withmild mucosal thickening. Note made of Bina cell. Mucosal thickening aboutthe ostium of the left ostiomeatal complex. Chronic nasal bone deformity. Nasal septum has a biconvex curvature.There is mild scattered mucosal thickening in the nasal cavity on both sides. The bilateral mastoid air cells are predominantly clear.Temporomandibular joints are symmetric and the zygomatic arches are intact. The left basisphenoid 1 cm well-circumscribed lucent area with internal subtlecalcific spicules could reflect arrested pneumatization of the basisphenoid.Request correlation with historical imaging studies to demonstrate stability and exclude other possibilities. The bilateral mastoid air cells are predominantly clear. The maxilla is edentulous. Note made of left palatine tonsilliths. IMPRESSION: 1. There are inflammatory changes in the paranasal sinuses as described. Foamy secretions can be seen with acute on chronic sinusitis in the proper clinical scenario. 2. Additional findings as above. THIS IS AN ELECTRONICALLY VERIFIED FINAL REPORT 08/14/2023 8:55 AM - Electronically signed by Bright ROACH T: Report ID: [id number] Reading Location: [place] [address] Patrick Mckoy MD IMG CT PROCEDURES Final Re sult documented in this encounter Visit Diagnoses Diagnosis Chronic sinusitis, unspecified location documented in this encounter Care Teams Mold Unloader Relationship Specialty Start Date End Date Thu De Guzman PA [address] [place] [id number] PCP - General Physician Modern Greek Studies Professor 06/30/23 documented as of this encounter
--- OUTSIDE RECORDS SUMMARY | 2024-04-22 19:40 | XMS_ITS | Clinical Summary ---
Author Organization [facility] [address] Address [address] [place] [address] Care Team Providers Care Battalion Chief Name Role Phone Thu De Guzman Primary Care Provider + Allergies No known active allergies Medications meloxicam (MOBIC) 7.5 mg tabletIndicatio ns:Osteoarthrit is Take 1 tablet (7.5 mg total) by mouth daily 30 tablet 3 4 07/27/19 25 Active amitriptyline (ELAVIL) 50 mg tablet Take 1 tablet (50 mg total) by mouth nightly 4 Active aspirin 81 mg capsule Take 1 capsule every day by oral route in the morning. Active atorvastatin (LIPITOR) 10 mg tablet Take 1 tablet (10 mg total) by mouth nightly Active azelastine (ASTELIN) 137 mcg (0.1 %) nasal spray USE 2 SPRAY(S) IN EACH NOSTRIL ONCE DAILY Active carBAMazepine (TEGretol) 200 mg tablet TAKE 1 & 1/2 (ONE & ONE-HALF) TABLETS BY MOUTH EVERY 12 HOURS Active cetirizine (ZyrTEC) 10 mg tablet Take 1 tablet every day by oral route for 30 days. 4 Active fluticasone propionate (FLONASE) 50 mcg/actuation nasal spray USE 2 SPRAY(S) IN EACH NOSTRIL ONCE DAILY Active lisinopriL (PRINIVIL,ZESTR [place]) 10 mg tablet Take 1 tablet (10 mg total) by mouth daily 4 Active pregabalin (LYRICA) 100 mg capsule Take 1 capsule (100 mg total) by mouth 3 (three) times a day 4 Active meloxicam (MOBIC) 7.5 mg tabletIndicatio ns:Right foot pain Take 1 tablet (7.5 mg total) by mouth daily 30 tablet 4 03/28/20 24 Discontinu ed(Reorder ) Active Problems No known active problems Encounters Date Type Department Care Team Description 04/18/2024 9:45 AM CONTROL CLERK HEAD Office Visit [facility] Medical [facility] Hand Surgery [address] [place] [address] [address] [place] [address] Sally Couch MD Bilateral hand pain (Primary Dx) 04/18/2024 9:15 AM CONTROL CLERK HEAD - 04/18/2024 11:59 PM CONTROL CLERK HEAD Hospital Encounter [facility] MOB 1 DIAG IMG [address] [place] [address] Bilateral hand pain Discharge Disposition: Discharge to home or self care 03/29/2024 Telephone [facility] Medical [facility] Hand Surgery [address] [place] [phone] Mar Underwood MA 03/28/2024 11:00 AM CONTROL CLERK HEAD Office Visit [facility] Orthopedics and Sports Medicine [address] [place] [phone] Hodan Whiteside PA Pain in right foot (Primary Dx); Right foot pain 03/28/2024 10:54 AM CONTROL CLERK HEAD - 03/28/2024 11:59 PM CONTROL CLERK HEAD Hospital Encounter [facility] Diag Imaging [address] [place] [address] Pain in right foot Discharge Disposition: Discharge to home or self care 02/29/2024 1:00 PM CONTROL CLERK HEAD Office Visit [facility] [address] [place] [phone] Hodan Whiteside PA Right foot pain (Primary Dx); Closed displaced fracture of cuboid of right foot, initial encounter; Other bilateral secondary osteoarthritis of knee; History of bilateral knee arthroplasty 02/29/2024 11:45 AM CONTROL CLERK HEAD - 02/29/2024 11:59 PM CONTROL CLERK HEAD Hospital Encounter [facility] Diagnostic Imaging [address] [place] [address] Right foot pain Discharge Disposition: Discharge to home or self care 02/08/2024 12:10 AM CDT - 02/08/2024 11:59 PM CDT Hospital Encounter [facility] Outside Images [address] [place] [address] Discharge Disposition: Discharge to home or self care 02/08/2024 12:05 AM CDT - 02/08/2024 11:59 PM CDT Hospital Encounter [facility] Outside Images [address] [place] [address] Discharge Disposition: Discharge to home or self care 02/08/2024 - 02/08/2024 11:59 PM CDT Hospital Encounter [facility] Outside Images [address] [place] [address] Discharge Disposition: Discharge to home or self care from Last 3 Months Social History Tobacco Use Types Packs/Day Years Used Date Smoking Tobacco: Never Assessed Comments Unknown Sex and Gender Information Value Date Recorded Sex Assigned at Not on file Legal Sex Female 10:26 AM CDT Gender Identity Female 06/30/2023 10:07 AM CDT Sexual Orientation Not on file Obstetrics History Last Filed Vital Signs Vital Sign Reading Time Taken Comments Blood Pressure - - Pulse - - Temperature - - Respiratory Rate - - Oxygen Saturation - - Inhaled Oxygen Concentration - - Weight 95.3 kg (210 lb) 03/28/2024 11:40 AM CONTROL CLERK HEAD Height 157.5 cm (5' 2 ) 03/28/2024 11:40 AM CONTROL CLERK HEAD Body Mass Index 38.41 03/28/2024 11:40 AM CONTROL CLERK HEAD Plan of Treatment Health Maintenance Due Date Last Done Comments Cervical Cancer Screening 1958 Colon Cancer Screening-Colonoscopy 1958 Depression Screening 1958 Fall Risk Assessment 1958 Hepatitis C Screening 1958 Osteoporosis Screening-Bone Density Scan 1958 Pneumococcal vaccine 65+ (1 of 2 - PCV) 1964 DTaP/Tdap/Td Vaccine (1 - Tdap) 1969 Hepatitis B Screening 1976 Zoster Vaccine (1 of 2) 2008 Well Visit 65+ 11/18/2023 Breast Cancer Screening-Mammogram 10/01/2024 024 Influenza Vaccine Completed 01/08/2024, 04/21/2023 Procedures Procedure Name Priority Date/Time Associated Diagnosis Comments XR HAND LEFT 3 OR MORE VIEWS Schedule Routine, Read Routine (OP Routine) 04/18/2024 9:53 AM CONTROL CLERK HEAD Bilateral hand pain XR HAND RIGHT 3 OR MORE VIEWS Schedule Routine, Read Routine (OP Routine) 04/18/2024 9:53 AM CONTROL CLERK HEAD Bilateral hand pain XR FOOT RIGHT 3 OR MORE VIEWS Schedule Routine, Read Routine (OP Routine) 03/28/2024 12:01 PM CONTROL CLERK HEAD Pain in right foot XR FOOT RIGHT 3 OR MORE VIEWS Schedule Routine, Read Routine (OP Routine) 02/29/2024 12:05 PM CONTROL CLERK HEAD Right foot pain XR TRANSFER OF OUTSIDE FILMS Routine 02/08/2024 12:10 AM CDT XR TRANSFER OF OUTSIDE FILMS Routine 02/08/2024 12:05 AM CDT XR TRANSFER OF OUTSIDE FILMS Routine 02/08/2024 12:00 AM CDT DIAGNOSTIC MAMMOGRAM BILATERAL W JORDAN Schedule Routine, Read Routine (OP Routine) 10/02/2023 1:26 PM CDT Mastodynia from Last 3 Months or Most Recently Relevant to Health Maintenance Results * XR Hand Right 3 or More Views (04/18/2024 9:53 AM CONTROL CLERK HEAD) Anatomical Region Laterality Modality Upper Extremities, Hand Right Computed Radiography 04/18/2024 1:49 PM CONTROL CLERK HEAD Narrative 04/18/2024 1:50 PM CONTROL CLERK HEAD EXAM DESCRIPTION: XR HAND RIGHT 3 OR MORE VIEWS REASON FOR STUDY: pain ?? Chronic, increasing pain, pain at base of thumb ? FINDINGS: Four views submitted without comparison. No acute fractures are identified. ??Ulnar positive variance is present. ??There is mild triscaphe and moderate basal thumb joint osteoarthritis. ??There is polyarticular metacarpophalangeal and interphalangeal joint osteoarthritis. ?? There is no dorsal wrist soft tissue swelling. IMPRESSION: Mild right triscaphe and moderate basal thumb joint osteoarthritis. Polyarticular right metacarpophalangeal and interphalangeal joint osteoarthritis. THIS IS AN ELECTRONICALLY VERIFIED FINAL REPORT 04/18/2024 1:50 PM - Electronically signed by ??Misbah Mcmahan M.D. MF: [email or web address] D: ??04/18/2024 1:50 PM T: ??04/18/2024 1:50 PM Report ID: [id number] Reading Location: ??[id number] Procedure Note Misbah Mcmahan MD - 04/18/2024 EXAM DESCRIPTION: XR HAND RIGHT 3 OR MORE VIEWS REASON FOR STUDY: pain Chronic, increasing pain, pain at base of thumb FINDINGS: Four views submitted without comparison. No acute fractures are identified. Ulnar positive variance is present.There is mild triscaphe and moderate basal thumb joint osteoarthritis. There is polyarticular metacarpophalangeal and interphalangeal jointosteoarthritis. There is no dorsal wrist soft tissue swelling. IMPRESSION: Mild right triscaphe and moderate basal thumb joint osteoarthritis. Polyarticular right metacarpophalangeal and interphalangeal joint osteoarthritis. THIS IS AN ELECTRONICALLY VERIFIED FINAL REPORT 04/18/2024 1:50 PM - Electronically signed by Misbah Mcmahan M.D. MF: SELENE Report ID: [id number] Reading Location: [id number] us aSlly Couch MD IMG XR PROCEDURES Final R esult * XR Hand Left 3 or More Views (04/18/2024 9:53 AM CONTROL CLERK HEAD) Anatomical Region Laterality Modality Upper Extremities, Hand Left Computed Radiography 04/18/2024 1:50 PM CONTROL CLERK HEAD Narrative 04/18/2024 1:51 PM CONTROL CLERK HEAD EXAM DESCRIPTION: XR HAND LEFT 3 OR MORE VIEWS REASON FOR STUDY: pain ?? Chronic, increasing pain, pain at base of thumb ? FINDINGS: Four views submitted without comparison. No acute fractures are identified. ??Ulnar positive variance is present. ??There is mild triscaphe and severe basal thumb joint osteoarthritis. ??There is polyarticular metacarpophalangeal and interphalangeal joint osteoarthritis. ?? There is no dorsal wrist soft tissue swelling. IMPRESSION: Mild left triscaphe and severe basal thumb joint osteoarthritis. Polyarticular left hand and wrist osteoarthritis. THIS IS AN ELECTRONICALLY VERIFIED FINAL REPORT 04/18/2024 1:51 PM - Electronically signed by ??Misbah Mcmahan M.D. MF: SELENE D: ??04/18/2024 1:51 PM T: ??04/18/2024 1:51 PM Report ID: [id number] Reading Location: ??[id number] Procedure Note Misbah Mcmahan MD - 04/18/2024 EXAM DESCRIPTION: XR HAND LEFT 3 OR MORE VIEWS REASON FOR STUDY: pain Chronic, increasing pain, pain at base of thumb FINDINGS: Four views submitted without comparison. No acute fractures are identified. Ulnar positive variance is present.There is mild triscaphe and severe basal thumb joint osteoarthritis. There is polyarticular metacarpophalangeal and interphalangeal jointosteoarthritis. There is no dorsal wrist soft tissue swelling. IMPRESSION: Mild left triscaphe and severe basal thumb joint osteoarthritis. Polyarticular left hand and wrist osteoarthritis. THIS IS AN ELECTRONICALLY VERIFIED FINAL REPORT 04/18/2024 1:51 PM - Electronically signed by Misbah Mcmahan M.D. MF: SELENE Report ID: [id number] Reading Location: [id number] us Sally Couch MD IMG XR PROCEDURES Final R esult * XR Foot Right 3 or More Views (03/28/2024 12:01 PM CONTROL CLERK HEAD) Anatomical Region Laterality Modality Lower Extremities, Foot Right Computed Radiography 03/31/2024 8:42 AM CONTROL CLERK HEAD Narrative 03/31/2024 8:44 AM CONTROL CLERK HEAD EXAM DESCRIPTION: XR FOOT RIGHT 3 OR MORE VIEWS REASON FOR STUDY: Pain in Foot, Right, fracture ?? Injury/fx 02/08/24, No current complaints ? FINDINGS: Three views submitted with comparison 02/29/2024. No acute fractures are identified. ??There is mild pes planovalgus. ??There is mild 1st metatarsophalangeal joint osteoarthritis. ??Plantar heel spur and Achilles enthesophyte are present. IMPRESSION: Mild right pes planovalgus. Mild right 1st metatarsophalangeal joint osteoarthritis. THIS IS AN ELECTRONICALLY VERIFIED FINAL REPORT 03/31/2024 8:44 AM - Electronically signed by ??Misbah Mcmahan M.D. D: ??03/31/2024 8:44 AM T: Report ID: [id number] Reading Location: ??[id number] Procedure Note Misbah Mcmahan MD - 03/31/2024 EXAM DESCRIPTION: XR FOOT RIGHT 3 OR MORE VIEWS REASON FOR STUDY: Pain in Foot, Right, fracture Injury/fx 02/08/24, No current complaints FINDINGS: Three views submitted with comparison 02/29/2024. No acute fractures are identified. There is mild pes planovalgus. Thereis mild 1st metatarsophalangeal joint osteoarthritis. Plantar heel spur and Achilles enthesophyte are present. IMPRESSION: Mild right pes planovalgus. Mild right 1st metatarsophalangeal joint osteoarthritis. THIS IS AN ELECTRONICALLY VERIFIED FINAL REPORT 03/31/2024 8:44 AM - Electronically signed by Misbah Mcmahan M.D. T: Report ID: [id number] Reading Location: [id number] Hodan REECE IMG XR PROCEDURES Final Re sult * XR Foot Right 3+ Vw (02/29/2024 12:05 PM CONTROL CLERK HEAD) Anatomical Region Laterality Modality Lower Extremities, Foot Right Computed Radiography 03/02/2024 10:4 8 AM CONTROL CLERK HEAD Narrative 03/02/2024 10:49 AM CONTROL CLERK HEAD EXAM DESCRIPTION: XR FOOT RIGHT 3 OR [...] D: ??03/02/2024 10:49 AM T: Report ID: [id number] Reading Location: ??[id number] Procedure Note Rubén Jaeger MD - 03/02/2024 [...] by Rubén Jaeger M.D. T: Report ID: [id number] Reading Location: [id number] Hodan REECE IMG XR PROCEDURES Final Re sult * XR Outside Reference (02/08/2024 12:10 AM CDT) Narrative NAHUM_GINNA_MHWill_MHE - 02/15/2024 10:40 AM CDT This order has been auto-finalized and does not contain a result. us Provider Transcribed Order IMG XR PROCEDURES Fin al Result Performing Organization Address [facility] de Phone Number NAHUM_GINNA_MIGUEL ANGELB_MHE * XR Outside Reference (02/08/2024 12:05 AM CDT) Narrative RAD_GINNA_NOEL_MIGUEL ANGELE - 02/15/2024 10:39 AM CDT This order has been auto-finalized and does not contain a result. us Provider Transcribed Order IMG XR PROCEDURES Fin al Result Performing Organization Address [facility] de Phone Number NAHUM_GINNA_NOEL_MHE * XR Outside Reference (02/08/2024 12:00 AM CDT) Narrative RAD_GINNA_MIGUEL ANGELB_MHE - 02/15/2024 10:38 AM CDT This order has been auto-finalized and does not contain a result. us Provider Transcribed Order IMG XR PROCEDURES Fin al Result Performing Organization Address [facility] de Phone Number NAHUM_GINNA_MIGUEL ANGELB_MHE * Diagnostic Mammogram Bilateral W Jordan (10/02/2023 1:26 PM CDT) Anatomical Region Laterality Modality Breast Bilateral Mammography 10/02/2023 1:54 PM CDT Narrative 10/02/2023 1:55 PM CDT EXAM DESCRIPTION: ?? US BREAST RIGHT LIMITED; DIAGNOSTIC MAMMOGRAM BILATERAL W JORDAN REASON FOR STUDY: 62-year-old woman comes in today for evaluation of focal pain in the right breast, and routine screening of the left breast. COMPARISON: Screening mammogram dated 11/08/2021. FINDINGS: CC and MLO digital breast tomosynthesis of ??both breasts ??with C view was performed. Targeted sonographic examination of the ??right ??breast was also performed with real-time grayscale images and color Doppler. FINDINGS: MAMMOGRAPHIC FINDINGS: DENSITY: ??There are scattered areas of fibroglandular density. BREASTS: ??There are no new suspicious findings in either breast on mammogram. ?? Specifically, no findings identified in the right breast to account for patient's reported focal pain, which localizes to approximately the 9 o'clock position middle depth as evidenced by placement of a metallic BB marker. ULTRASOUND FINDINGS: Targeted sonographic examination of the right breast is performed at the 9 o'clock position 8 cm from the nipple, corresponding to the area of reported focal pain. ??Images at this level demonstrates only normal fatty and fibroglandular tissue without suspicious solid or cystic masses. ?? IMPRESSION: 1. ?? There are no findings in the right breast on mammogram or sonogram to account for patient's focal pain. ??Continued monthly breast self-examination is recommended, and clinical follow-up. ??Any further management at this time should be based on clinical assessment. 2. ?? No new suspicious findings are seen in either breast on mammogram. ?? Annual bilateral screening mammography is recommended in 12 months. BIRADS: 1 - Negative I discussed the findings and recommendations with the patient at the time of the examination. ?? THIS IS AN ELECTRONICALLY VERIFIED FINAL REPORT 10/02/2023 1:55 PM - Electronically signed by ??Bishnu Cunningham M.D. RL: HERBERTH D: ??10/02/2023 1:55 PM T: ??10/02/2023 1:55 PM Report ID: [id number] Reading Location: ??MAMMMHE Thu REECE IMG MAMMO PROCEDURES Fin al Result from Last 3 Months or Most Recently Relevant to Health Maintenance Insurance [facility] Care Teams Battalion Chief Relationship Specialty Start Date End Date Thu De Guzman PA [address] [place] [phone] PCP - General Physician Grid Maker 06/30/23
--- OUTSIDE RECORDS SUMMARY | 2024-04-22 19:40 | XMS_ITS | Encounter Summary ---
Author Organization [facility] Healthcare Address [address] [place] [address] Care Team Providers Care Wallpaper Embosser Helper Name Role Phone Thu De Guzman Primary Care Provider + Encounter Details Date Type Department Care Team (Latest Contact Info) Description 02/08/2024 - 02/08/2024 11:59 PM CDT Hospital Encounter [facility] Outside Images [address] [place] [address] Discharge Disposition: Discharge to home or self [...] OUTSIDE FILMS Routine 02/08/2024 12:00 AM CDT documented in this encounter Results * XR Outside Reference (02/08/2024 12:00 AM CDT) Narrative ALEX_MHE - 02/15/2024 10:38 AM CDT This order has been auto-finalized and does not contain a result. us Provider Transcribed Order IMG XR PROCEDURES Fin al Result Performing Organization Address City/State/[facility] Co de Phone Number NAHUM_GINNA_MHB_MHE documented in this encounter Visit Diagnoses Not on filedocumented in this encounter Care Teams Wallpaper Embosser Helper Relationship Specialty Start Date End Date Thu De Guzman PA [address] [place] [address] PCP - General Physician Plywood Stock Grader 06/30/23 documented as of this encounter
--- OUTSIDE RECORDS SUMMARY | 2024-04-22 19:40 | XMS_ITS | Encounter Summary ---
Author Organization [facility] Healthcare Address [address] [place] [address] Care Team Providers Care Internal Revenue Agent Name Role Phone Unavailable Primary Care Provider Unavailabl e Reason for Visit * Diagnostic Imaging (Routine) - Pending Review Specialty Diagnoses / Procedures Referred By Garett t Referred To Contact Procedures Breast Imaging Screening Outside Reference Transcribed Order, Provider Referral ID Status Reason Start Date Expiration Date V isits Requested Visits Authorized [id number] Pending Review 09/21/2023 10/20/2024 1 1 Encounter Details Date Type Department Care Team (Latest Contact Info) Description 11/08/2021 - 11/08/2021 11:59 PM CDT Hospital Encounter [facility] Outside Images [address] [place] [address] Discharge Disposition: Discharge to home or self care Social History Tobacco Use Types Packs/Day Years Used Date Smoking Tobacco: Never Assessed Comments Unknown Sex and Gender Information Value Date Recorded Sex Assigned at Not on file Legal Sex Female 10:26 AM CDT Gender Identity Female 06/30/2023 10:07 AM CDT Sexual Orientation Not on file documented as of this encounter Discharge Disposition Disposition Code Departure Means Destination Discharge to home or self care documented in this encounter Plan of Treatment Not on file documented as of this encounter Procedures Procedure Name Priority Date/Time Associated Diagnosis Comments BREAST IMAGING MG SCREENING OUTSIDE REFERENCE Routine 11/08/2021 12:00 AM CDT documented in this encounter Results * Breast Imaging Screening Outside Reference (11/08/2021 12:00 AM CDT) Narrative RAD_CLARIO_MHB_MHE - 09/21/2023 2:04 PM CDT This order has been auto-finalized and does not contain a result. us Provider Transcribed Order IMG MAMMO PROCEDURES Final Result NAHUM_GINNA_MHB_MHE documented in this encounter Visit Diagnoses Not on filedocumented in this encounter
--- OUTSIDE RECORDS SUMMARY | 2024-04-22 19:40 | XMS_ITS | Encounter Summary ---
Author Organization [facility] Address [address] [place] [address] Care Team Providers Care Grass Cutter Name Role Phone No, Physician Primary Care Provider [phone] Encounter Details Date Type Department Care Team (Late st Contact Info) Description 12/16/2021 Orders Only [facility] Cardiology [address] [place] [phone] Misbah Bell MD [address] [place], [place] [phone] Social History Tobacco Use Types Packs/Day Years [...] on filedocumented in this encounter Care Teams Grass Cutter Relationship Specialty Start Date End Date No, Physician PCP - General 12/16/21 06/29/23 documented as of this encounter
--- OUTSIDE RECORDS SUMMARY | 2024-04-22 19:40 | XMS_ITS | Encounter Summary ---
Author Organization [facility] Healthcare Address [address] [place] [address] Care Team Providers Care Purchasing Engineer Name Role Phone Thu De Guzman Primary Care Provider + Encounter Details Date Type Department Care Team (Latest Contact Info) Description 02/29/2024 11:45 AM LICENSED NURSE PRACTITIONER - 02/29/2024 11:[address] [facility] Hospital Encounter [facility] Diagnostic Imaging [address] [place] [phone] Right foot pain Discharge Disposition: Discharge to [...] this encounter Medications at Time of Discharge amitriptyline (ELAVIL) 50 mg tablet Take 1 tablet (50 mg total) by mouth nightly 02/10/2024 cetirizine (ZyrTEC) 10 mg tablet Take 1 tablet every day by oral route for 30 days. 06/22/2023 lisinopriL (PRINIVIL,ZESTRIL ) 10 mg tablet Take 1 tablet (10 mg total) by mouth daily 08/18/2023 pregabalin (LYRICA) 100 mg capsule Take 1 capsule (100 mg total) by mouth 3 (three) times a day 02/10/2024 meloxicam (MOBIC) 7.5 mg tabletIndications :Right foot pain Take 1 tablet (7.5 mg total) by mouth daily 30 tablet 02/29/2024 03/28/2024 documented as of this encounter Discharge Disposition Disposition Code Departure Means Destination Discharge to home or self care documented in this encounter Plan of Treatment Not on file documented as of this encounter Procedures Procedure Name Priority Date/Time Associated Diagnosis Comments XR FOOT RIGHT 3 OR MORE VIEWS Schedule Routine, Read Routine (OP Routine) 02/29/2024 12:05 PM LICENSED NURSE PRACTITIONER Right foot pain documented in this encounter Results * XR Foot Right 3+ Vw (02/29/2024 12:05 PM LICENSED NURSE PRACTITIONER) Anatomical Region Laterality Modality Lower Extremities, Foot Right Computed Radiography 03/02/2024 10:4 8 AM LICENSED NURSE PRACTITIONER Narrative 03/02/2024 10:49 AM LICENSED NURSE PRACTITIONER EXAM DESCRIPTION: XR FOOT RIGHT 3 OR [...] - Electronically signed by ??Rubén Jaeger M.D. TH D: ??03/02/2024 10:49 AM T: Report ID: [id number] Reading Location: ??[id number] Procedure Note Rubén Jaeger MD - 03/02/2024 [...] by Rubén Jaeger M.D. T: Report ID: [id number] Reading Location: [place] [address] Hodan REECE IMG XR PROCEDURES Final Re sult documented in this encounter Visit Diagnoses Diagnosis Right foot pain Pain in soft tissues of limb documented in this encounter Care Teams Purchasing Engineer Relationship Specialty Start Date End Date Thu De Guzman PA [address] [place] [phone] PCP - General Physician Ldr Nurse 06/30/23 documented as of this encounter
--- OUTSIDE RECORDS SUMMARY | 2024-04-22 19:40 | XMS_ITS | Referral Summary ---
Author Organization [facility] [address] Address [address] [place] [address] Care Team Providers Care Solar Crew Member Name Role Phone Thu De Guzman Primary Care Provider + Encounters Date Type Department Care Team Description 04/18/2024 9:15 AM CHANGE CONTROL ANALYST - 04/18/2024 11:59 PM CHANGE CONTROL ANALYST Hospital Encounter [facility] MOB 1 DIAG IMG [address] [place] [id number] Bilateral hand pain Discharge Disposition: Discharge to home or self care 04/18/2024 9:45 AM CHANGE CONTROL ANALYST Office Visit [facility] Hand Surgery [address] [place] [address] [address] [place] [phone] Sally Couch MD Bilateral hand pain (Primary Dx) 03/29/2024 Telephone [facility] Hand Surgery [address] [place] [address] [address] [place] [phone] Mar Underwood MA 03/28/2024 10:54 AM CHANGE CONTROL ANALYST - 03/28/2024 11:59 PM CHANGE CONTROL ANALYST Hospital Encounter [facility] Diag Imaging [address] [place] [id number] Pain in right foot Discharge Disposition: Discharge to home or self care 03/28/2024 11:00 AM CHANGE CONTROL ANALYST Office Visit [facility] [address] [place] [address] [address] [place] [phone] Hodan Whiteside PA Pain in right foot (Primary Dx); Right foot pain 02/29/2024 11:45 AM CHANGE CONTROL ANALYST - 02/29/2024 11:59 PM CHANGE CONTROL ANALYST Hospital Encounter [facility] Diagnostic Imaging [address] [place] [address] Right foot pain Discharge Disposition: Discharge to home or self care 02/29/2024 1:00 PM CHANGE CONTROL ANALYST Office Visit [facility] [address] [address] [place] [phone] Hodan Whiteside PA Right foot pain (Primary Dx); Closed displaced fracture of cuboid of right foot, initial encounter; Other bilateral secondary osteoarthritis of knee; History of bilateral knee arthroplasty 02/08/2024 12:10 AM CDT - 02/08/2024 11:59 PM CDT Hospital Encounter [facility] Outside Images [address] [place] [address] Discharge Disposition: Discharge to home or self care 02/08/2024 12:05 AM CDT - 02/08/2024 11:59 PM CDT Hospital Encounter [facility] Outside Images [address] [place] [address] Discharge Disposition: Discharge to home or self care 02/08/2024 - 02/08/2024 11:59 PM CDT Hospital Encounter [facility] Outside Images [address] [place] [address] Discharge Disposition: Discharge to home or self care from Last 3 Months Allergies No known active allergies Medications meloxicam [...] ) Active Problems No known active problems Social History Tobacco Use Types Packs/Day Years Used Date Smoking Tobacco: Never Assessed Comments Unknown Sex and Gender Information Value Date Recorded Sex Assigned at Not on file Legal Sex Female 10:26 AM CDT Gender Identity Female 06/30/2023 10:07 AM CDT Sexual Orientation Not on file Last Filed Vital Signs Vital Sign Reading Time Taken Comments Blood Pressure - - Pulse - - Temperature - - Respiratory Rate - - Oxygen Saturation - - Inhaled Oxygen Concentration - - Weight 95.3 kg (210 lb) 03/28/2024 11:40 AM CHANGE CONTROL ANALYST Height 157.5 cm (5' 2 ) 03/28/2024 11:40 AM CHANGE CONTROL ANALYST Body Mass Index 38.41 03/28/2024 11:40 AM CHANGE CONTROL ANALYST Plan of Treatment Not on file Procedures Procedure Name Priority Date/Time Associated Diagnosis Comments XR HAND LEFT 3 OR MORE VIEWS Schedule Routine, Read Routine (OP Routine) 04/18/2024 9:53 AM CHANGE CONTROL ANALYST Bilateral hand pain XR HAND RIGHT 3 OR MORE VIEWS Schedule Routine, Read Routine (OP Routine) 04/18/2024 9:53 AM CHANGE CONTROL ANALYST Bilateral hand pain XR FOOT RIGHT 3 OR MORE VIEWS Schedule Routine, Read Routine (OP Routine) 03/28/2024 12:01 PM CHANGE CONTROL ANALYST Pain in right foot XR FOOT RIGHT 3 OR MORE VIEWS Schedule Routine, Read Routine (OP Routine) 02/29/2024 12:05 PM CHANGE CONTROL ANALYST Right foot pain XR TRANSFER OF OUTSIDE [...] 3 or More Views (04/18/2024 9:53 AM CHANGE CONTROL ANALYST) Anatomical Region Laterality Modality Upper Extremities, Hand Right Computed Radiography 04/18/2024 1:49 PM CHANGE CONTROL ANALYST Narrative 04/18/2024 1:50 PM CHANGE CONTROL ANALYST EXAM DESCRIPTION: XR HAND RIGHT 3 OR [...] PM T: ??04/18/2024 1:50 PM Report ID: [id number] Reading Location: ??[id number] Procedure Note Misbah Mcmahan MD - 04/18/2024 [...] 1:50 PM - Electronically signed by Misbah MORTON: SELENE Report ID: [id number] Reading Location: [id number] us Sally Couch MD IMG XR PROCEDURES Final R esult * XR Hand Left 3 or More Views (04/18/2024 9:53 AM CHANGE CONTROL ANALYST) Anatomical Region Laterality Modality Upper Extremities, Hand Left Computed Radiography 04/18/2024 1:50 PM CHANGE CONTROL ANALYST Narrative 04/18/2024 1:51 PM CHANGE CONTROL ANALYST EXAM DESCRIPTION: XR HAND LEFT 3 OR [...] PM T: ??04/18/2024 1:51 PM Report ID: [id number] Reading Location: ??[id number] Procedure Note Misbah Mcmahan MD - 04/18/2024 [...] Misbah Mcmahan M.D. MF: SELENE Report ID: [id number] Reading Location: [id number] us Sally Couch MD IMG XR PROCEDURES Final R esult * XR Foot Right 3 or More Views (03/28/2024 12:01 PM CHANGE CONTROL ANALYST) Anatomical Region Laterality Modality Lower Extremities, Foot Right Computed Radiography 03/31/2024 8:42 AM CHANGE CONTROL ANALYST Narrative 03/31/2024 8:44 AM CHANGE CONTROL ANALYST EXAM DESCRIPTION: XR FOOT RIGHT 3 OR [...] D: ??03/31/2024 8:44 AM T: Report ID: [id number] Reading Location: ??[id number] Procedure Note Misbah Mcmahan MD - 03/31/2024 [...] by Misbah Mcmahan M.D. T: Report ID: [id number] Reading Location: [id number] Hodan REECE IMG XR PROCEDURES Final Re sult * XR Foot Right 3+ Vw (02/29/2024 12:05 PM CHANGE CONTROL ANALYST) Anatomical Region Laterality Modality Lower Extremities, Foot Right Computed Radiography 03/02/2024 10:4 8 AM CHANGE CONTROL ANALYST Narrative 03/02/2024 10:49 AM CHANGE CONTROL ANALYST EXAM DESCRIPTION: XR FOOT RIGHT 3 OR [...] D: ??03/02/2024 10:49 AM T: Report ID: [id number] Reading Location: ??[id number] Procedure Note Rubén Jaeger MD - 03/02/2024 [...] by Rubén Jaeger M.D. T: Report ID: [id number] Reading Location: [id number] Hodan REECE IMG XR PROCEDURES Final Re sult * XR Outside Reference (02/08/2024 12:10 AM CDT) Narrative RAD_[email or web address] - 02/15/2024 10:40 AM CDT This order has been auto-finalized and does not contain a result. us Provider Transcribed Order IMG XR PROCEDURES Fin al Result Performing Organization Address [facility] de Phone Number [email or web address] * XR Outside Reference (02/08/2024 12:05 AM CDT) Narrative RAD_CLARIO_MHB_MHE - 02/15/2024 10:39 AM CDT This order has been auto-finalized and does not contain a result. us Provider Transcribed Order IMG XR PROCEDURES Fin al Result Performing Organization Address [facility] Co de Phone Number [email or web address] * XR Outside Reference (02/08/2024 12:00 AM CDT) Narrative CELSO_MIGUEL ANGELB_MHE - 02/15/2024 10:38 AM CDT This order has been auto-finalized and does not contain a result. us Provider Transcribed Order IMG XR PROCEDURES Fin al Result NAHUM_[email or web address] * Diagnostic Mammogram Bilateral W Jordan (10/02/2023 [...] PM T: ??10/02/2023 1:55 PM Report ID: [id number] Reading Location: ??[id number] Thu REECE IMG MAMMO PROCEDURES Fin al Result from Last 3 Months or Most Recently Relevant to Health Maintenance Insurance [facility] Care Teams Solar Crew Member Relationship Specialty Start Date End Date Thu De Guzman PA [address] [place] [address] PCP - General Physician Epitaxial Reactor Technician 06/30/23
--- OUTSIDE RECORDS SUMMARY | 2024-04-22 19:40 | XMS_ITS | Data Portability ---
Author Organization [facility] Address [address] [place] [address] Care Team Providers Care Managing Consultant Clinical Professor Name Role Phone ULISES MURRAY Primary Care Provider [phone] Assessment No assessment recorded. Plan of Treatment Reminders Order Date Submit Date Provider Last Modified By Organization Details Last Modified Time Details Appointments ANY 15 2024 04:00P M SHANELL HOBSON Not available Not available Not available Lab culture, urine 2023 [address] [place] [address] [facility], [address], [address], [place], [address], 12/28/2023 08:19:31 Referral None recorded. Procedures None recorded. Surgeries None recorded. Imaging DEXA [address] (Imaging), [address] [place] [address] [address], [place], [address], 01/05/2024 08:09:45 Medication Orders fluticaso ne propionat e 50 mcg/actua tion nasal spray,ant pension 2023 024 [facility] 2425, [address] [facility], [place], [address], 11/09/2023 11:31:00 carbamaze pine 200 mg tablet [address], [address] [facility], [place], [address], 12/03/2023 16:10:56 losartan 50 mg tablet 2023 024 [facility] 2425, [address], [place], [address], 12/03/2023 16:19:33 atorvasta tin 10 mg tablet 2023 024 [facility] 2425, [address], [place], [address], 12/03/2023 16:19:09 azelastin e 137 mcg (0.1 %) nasal spray 2023 024 [facility] 2425, [address], [place], [address], 12/14/2023 10:50:14 Patient TargetsNo targets recorded. Patient InstructionsNo instructions recorded. Reason for Referral None Reported. Results Created Date Observation Date Name Description Value Unit Range Abnormal Flag Note LastModifiedBy Organization Detail LastModifiedTime 12/24/1912/26/2023 URINE CULTU RE, ROUTI NE urine culture, routine FINAL REPORT Not Available [facility] ([facility]) [address] [facility], [place], [address], 12/26/2023 05:10:18 12/24/1912/26/2023 URINE CULTU RE, ROUTI NE result 1 COMMEN T Cultu re shows less than 10,00 0 colon y formi ng units of bacte armin per celine liter of urine . This colon y count is not gener ally consi dered to be clini lane signi fican t. Not Available [facility] ([facility]) [address] [facility], [place], [address], 12/26/2023 05:10:18 04/18/20 24 04/15/2024 DEXA No observ ation record ed. [address], [address], 04/19/2024 08:53:58 04/18/20 24 04/15/2024 DEXA No observ ation record ed. [address] [place], [address], 04/19/2024 08:53:59 Result Notes None recorded. Problems Name Problem SNOMED Code Status Onset Date Resolution Date Notes Provider Name and Address Organization Details Recorded Time Trigeminal neuralgia 56667888 Active 2021 SHANELL HOBSON Attn: Accountareli g,[address], [place], [address], [place] [facility] 2 11:09:03 Pain in right hip joint 4821647219620 02 Active 2021 SHANELL HOBSON Attn: Accountin g,[address] [facility], [place], [address], [place] [facility] 2 16:00:43 Neuropathy 347542989 Active 2021 SHANELL HOBSON Attn: Accountin g,[address] [facility], [place], [address], [place] [facility] 2 16:00:45 Cerebrovasc ular accident 440745856 Active 2021 SHANELL HOBSON Attn: Accountin g,[address] [facility], [place], [address], [place] [facility] 2 16:00:50 Chest pain 15031385 Active 2021 SHANELL HOBSON Attn: Accountin g,[address] [facility], [place], [address], [place] [facility] 2 16:00:51 Essential hypertensio n 45143373 Active 2021 SHANELL HOBSON Attn: Accountin g,[address] [facility], [place], [address], [place] [facility] 2 16:00:55 Screening mammography Active 2021 SHANELL HOBSON Attn: Accountin g,[address] [facility], [place], [address], [place] [facility] 2 16:00:58 Obesity 131980876 Active 2021 SHANELL HOBSON Attn: Accountin g,[address], [place], [address], [place] [facility] 2 16:01:02 Hyperlipide sarah 03864806 Active 2021 SHANELL HOBSON Attn: Accountin g,[address] [facility] [address], [place], [address], [place] [facility] 2 16:01:03 Fall Active 2021 SHANELL HOBSON Attn: Accountin g,[address], [place], [address], [place] [facility] 2 10:26:04 Depressive disorder 01414961 Active 2022 SHANELL HOBSON Attn: Accountin g,[address] [facility], [place], [address], [place] [facility] 3 11:02:27 Onychomycos is 422517613 Active 2022 SHANELL HOBSON Attn: Accountin g,[address] [facility], [place], [address], [place] [facility] 3 09:50:58 Osteoarthri tis of knee 039919431 Active 2022 SHANELL HOBSON Attn: Accountin g,[address] [facility], [place], [address], [place] [facility] 3 13:27:24 Problem Notes None recorded. Procedures Surgical History Date Name Laterality Status Provider Name and Address Organization Details Recorded Time 1 Date of Last Mammogram completed Rufino Rod [place] 11/05/2021 11:00:38 8 Date of Last Pap Smear completed Rufino Rod [place] [facility] 11/05/2021 11:00:47 Imaging Results Imaging Date Name Status LastModified by Organizatio n Details LastModified Time 04/15/2024 DEXA completed [facility] [address] [facility] [address], [place], [address], 04/19/2024 08:53:58 04/15/2024 [facility] [address] [facility] [address], [place], [address], 04/19/2024 08:53:59 Procedure Notes None recorded. Medical Equipment None Reported. Allergies No known drug allergies Medications Name Sig Start Date Stop Date Status Note LastModified by Organization Details LastModified Time losartan 50 mg tablet TAKE 1 TABLET BY MOUTH ONCE DAILY active Not Available Not Available No t Available amoxicillin 500 mg capsule TAKE 1 CAPSULE BY MOUTH EVERY 12 HOURS FOR 10 DAYS 10/04 completed Not Available Not Available Not Available cetirizine 10 mg tablet Take 1 tablet every day by oral route for 30 days. 2023 active Not Available Not Available Not Avai lable atorvastati n 10 mg tablet TAKE 1 TABLET BY MOUTH ONCE DAILY IN THE EVENING active Not Available Not Available No t Available azithromyci n 250 mg tablet TAKE 2 TABLETS BY MOUTH ON DAY 1, AND THEN TAKE 1 TABLET BY MOUTH ONCE A DAY ON DAY 2 THROUGH DAY 5 09/28 completed Not Available Not Available Not Available hydrocodone 5 mg-acetamin ophen 325 mg tablet TAKE 1 TABLET BY MOUTH EVERY 4 HOURS NEEDED FOR PAIN 09/16 completed Not Available Not Available Not Available sulfamethox azole 800 mg-trimetho prim 160 mg tablet TAKE 1 TABLET BY MOUTH EVERY 12 HOURS FOR 3 DAYS 12/02 completed Not Available Not Available Not Available amitriptyli ne 50 mg tablet TAKE 1 TABLET BY MOUTH IN THE EVENING active Not Available Not Available No t Available ciclopirox 8 % topical solution APPLY SOLUTION TOPICALLY TO AFFECTED AREA ONCE DAILY, PREFERABL Y AT BEDTIME OR 8 HOURS BEFORE WASHING 12/02 completed Not Available Not Available Not Available meloxicam 7.5 mg tablet TAKE 1 TABLET BY MOUTH ONCE DAILY active Not Available Not Available No t Available carbamazepi ne 200 mg tablet Take 1.5 tablets every 12 hours by oral route for 90 days. active Not Available Not Available No t Available amitriptyli ne 25 mg tablet Take 1 tablet every day by oral route at bedtime for 30 days. 05/19 completed Not Available Not Available Not Available baclofen 10 mg tablet TAKE 1/2 (ONE-HALF ) TABLET BY MOUTH TWICE DAILY FOR 30 DAYS 12/02 completed Not Available Not Available Not Available lisinopril 10 mg tablet TAKE 1 TABLET BY MOUTH ONCE DAILY 12/02 completed Not Available Not Available Not Available hydroxyzine HCl 25 mg tablet Take 1 tablet every 8 hours by oral route as needed for 30 days. 12/02 completed Not Available Not Available Not Available hydrochloro thiazide 25 mg tablet Take 1 tablet every day by oral route in the morning for 90 days. 05/19 completed Not Available Not Available Not Available azelastine 137 mcg (0.1 %) nasal spray USE 2 SPRAY(S) IN EACH NOSTRIL ONCE DAILY active Not Available Not Available No t Available Vitamin D2 1,250 mcg (50,000 unit) capsule Take 1 capsule every week by oral route. 12/02 completed Not Available Not Available Not Available ondansetron 4 mg disintegrat ing tablet DISSOLVE 1 TABLET IN MOUTH EVERY 8 HOURS NEEDED FOR NAUSEA AND FOR VOMITING 12/18 completed Not Available Not Available Not Available fluticasone propionate 50 mcg/actuati on nasal spray,suspe nsion USE 2 SPRAY(S) IN EACH NOSTRIL ONCE DAILY active Not Available Not Available No t Available nitrofurant oin monohydrate /macrocryst als 100 mg capsule Take 1 capsule every 12 hours by oral route for 5 days. 10/04 completed Not Available Not Available Not Available pregabalin 100 mg capsule TAKE 1 CAPSULE BY MOUTH THREE TIMES DAILY active Not Available Not Available No t Available aspirin 81 mg capsule Take 1 capsule every day by oral route in the morning. active Not Available Not Available No t Available Vitals Date Recorded Body height Body mass index (BMI) Body weight Body temperature Heart rate Systolic blood pressure Diastolic blood pressure Provider Name and Address Organization Details Last Updated DateTime 4 161.29 cm 36.1 kg/m2 92668.9 8 g 98.6 [degF] 71 /min 153 mm[Hg] 66 mm[Hg] Cathleen Austin [place] - [facility] 4 11:15:53 Date Recorded Body height Body mass index (BMI) Body weight Heart rate Oxygen saturation Oxygen saturation in Arterial blood by Pulse oximetry Provider Name and Address Organization Details Last Updated DateTime 4 161.29 cm 35.9 kg/m2 57387.0 3 g 76 /min 95 % 95 % Karrie Castellon [facility] 4 15:47:18 Date Recorded Systolic blood pressure Diastolic blood pressure Provider Name and Address Organization Details Last Updated DateTime 12/03/2023 133 mm[Hg] 76 mm[Hg] SHANELL HOBSON Attn: Accounting,[address] [facility], [place], [address], [facility] 12/09/2023 11:02:02 Date Recorded Body height Body mass index (BMI) Body weight Heart rate Body temperature Systolic blood pressure Diastolic blood pressure Provider Name and Address Organization Details Last Updated DateTime 4 161.29 cm 36.4 kg/m2 94425.8 1 g 70 /min 97.8 [degF] 135 mm[Hg] 67 mm[Hg] Cathleen Austin MA [facility] 4 10:35:52 Social History Question Answer Notes LastModified by Organizat ion Details LastModified Time Tobacco Smoking Status Never Smoker Rufino Rod MA null, [facility] 11/05/2021 11:02:19 What Is Your Level Of Alcohol Consumption? None Information not available 11/05/2021 In The 14 Days Before Symptom Onset, Have You Had Close Contact With A Laboratory-confirm ed COVID-19 While That Case Was Ill? No Information n ot available 11/05/2021 In The 14 Days Before Symptom Onset, Have You Had Close Contact With A Person Who Is Under Investigation For COVID-19 While That Person Was Ill? No Information not available 11/05/2021 Have You Been To An Area Known To Be High Risk For COVID-19? No Information not available 11/05/2021 Are You Currently Employed? No Information not available 11/05/2021 What Was The Date Of Your Most Recent Tobacco Screening? 05/28/2023 Information not available 05/28/2023 Are You Sexually Active? No Information not available 11/05/2021 Do You Have Smoke And Carbon Monoxide Detectors In Your Home? Yes Information not available 11/05/2021 Are You Passively Exposed To Smoke? No Information no t available 11/05/2021 Do You Use Any Illicit Or Recreational Drugs? No Information not available 11/05/2021 Has Tobacco Cessation Counseling Been Provided? Yes [email or web address] Information not available 12/17/2021 On What Date Was Tobacco Cessation Counseling Provided? 05/28/2023 Information not available 05/28/2023 Do You Or Have You Ever Used Any Other Forms Of Tobacco Or Nicotine? No Information not available 11/05/2021 Sex: Female Functional Status None recorded. Mental Status None recorded. Family History Relationship Description Onset Age of this Age Resolved Age Notes LastModified by Organization Details LastModified Time Father Malignant tumor of prostate [email or web address] Not available 2021 11:01:44 Mother Hypertensive disorder [email or web address] Not available 2021 11:02:03 Medical History Condition Response Coronary Artery Disease N Other Y Atrial Fibrillation N High Blood Pressure Y Depression N COPD N Blood Clots N Anxiety Disorder N Muscle, Joint, or Bone Problems N Acid Reflux (GERD) N Cancer N Stroke N High Cholesterol Y Liver Disease N Headaches N Kidney or Bladder Problems N Thyroid Problems N GI Problems N Skin Problems N Anemia N Heart Attack (DE) N Diabetes N Seizures/Epilepsy N Asthma N Allergies N Hepatitis N Heart Failure N Osteoporosis N Gynecological History Statement/Question Response Date of Last Pap Smear 11/05/2017 Age at Menarche 9 Date of Last Mammogram 11/01/2020 Age at First Child 13 Obstetrics History GPAL:G 5 P 4 0 1 4 Type Value Multiple Births 0 Full Term 4 Induced 1 Spontaneous 0 Premature 0 Living 4 Ectopics 0 Total 5 Immunizations Vaccine Type Date Status Note Provider Nam e and Address Organization Details Recorded Time Influenza, split virus, quadrivalent, PF 4 completed SHANELL HOBSON Attn: Accounting,[address] [facility], [place], [address], [facility] - [facility] 04/22/2023 08:28:49 Pneumococcal conjugate PCV20, polysaccharide NDA102 conjugate, adjuvant, PF 4 completed HSANELL HOBSON Attn: Accounting,[address] [facility], [place], [address], [facility] 12/09/2023 10:58:52 Influenza, high-dose, trivalent, PF 4 completed CORI [place], [place] - [facility] 01/08/2024 15:35:00 Past Encounters Encounter ID Performer Location Encounter Start Date Encounter Closed Date Diagnosis/Indication Diagnosis SNOMED-CT Code Diagnosis ICD10 Code [id number] SHANELL HOBSON [facility] [address] [place] [address] 11/05/2021 10:36:05 11/11/2021 09:29:29 Hyperlipidemia 64260263 E78.5 Obesity 703215985 E66.9 Screening mammography 24 577493 Z12.31 Trigeminal neuralgia 316 73948 G50.0 Essential hypertension 85482515 I10 Chest pain 85831032 R07. 9 Neuropathy 355498525 G62 .9 Pain in ri ght hip joint 9826905425 75739 M25.551 Cerebrovas cular accident 469691501 I63.9 [id number] SHANELL HOBSON [facility] [address] [place] [place] [address] 12/17/2021 10:02:32 12/18/2021 11:18:38 Pain in right hip joint 1834738689 11699 M25.551 Depression screening 171 798957 Z13.31 [id number] SHANELL HOBSON [facility] [address] [place] [place] [address] 03/19/2022 15:58:39 03/24/2022 06:19:39 Serum thyroid stimulating hormone level outside reference range 014239439 R79.89 Fatigue 61390509 R53.83 Hyperlipidemia 82502565 E78.5 Trigeminal neuralgia 316 42655 G50.0 Essential hypertension 72732758 I10 Mass of chest wall 65785 4000 R22.2 Prediabetes 159642468 R7 3.03 Obesity 218359310 E66.9 [id number] Karrie Castellon [facility] [address] [place] [place] [address] 03/20/2022 09:24:48 03/25/2022 14:20:43 [id number] SHANELL HOBSON [facility] [address] [place] [address] 04/18/2022 09:29:29 04/22/2022 11:40:47 Essential hypertension 22979772 I10 Hyperlipidemia 17509787 E78.5 Depressive disorder 3548 9007 F32.A Right uppe r quadrant pain 878342868 R10.11 Obesity 474252496 E66.9 Fall W19.XXXA [id number] [facility] [address] [place] [place] [address] 05/19/2022 09:49:13 05/22/2022 14:54:41 Depressive disorder 51881404 F32.A [id number] SHANELL HOBSON [facility] [address] [place] [place] [address] 06/17/2022 09:22:18 06/17/2022 09:57:26 Depressive disorder 93004542 F32.A Onychomycosis 739760203 B35.1 Obesity 846660791 E66.9 Screening for malignant neoplasm of colon 288806883 Z12.11 [id number] SHANELL HOBSON [facility] [address] [place] [place] [address] 09/16/2022 10:14:32 09/16/2022 11:06:41 Fall W19.XXXA Depressive disorder 3548 9007 F32.A Obesity 465894028 E66.9 Screening for malignant neoplasm of colon 520191980 Z12.11 Essential hypertension 50674721 I10 History of surgery 39603 5003 Z98.837 [id number] SHANELL HOBSON [facility] [address] [place] [address] 12/18/2022 08:20:02 12/18/2022 08:47:02 Screening mammography 90424780 Z12.31 Obesity 360701023 E66.9 Pain in ri ght hip joint 8821694823 63633 M25.551 Cerebrovas cular accident 234293638 I63.9 Osteoarthr itis of knee 932038737 M17.9 [id number] Isabelle Luna CMA [facility] [address] [place] [place] [address] 01/08/2023 14:01:16 01/08/2023 15:20:06 Dysuria 66643713 R30.0 [id number] SHANELL HOBSON [facility] [address] [place] [address] 04/21/2023 11:44:25 04/21/2023 12:13:39 Administration of influenza vaccine 23550454 Z23 Trigeminal neuralgia 316 20055 G50.0 Screening mammography 24 098862 Z12.31 Obesity 651831833 E66.9 [id number] SHANELL HOBSON [facility] [address] [place] [address] 05/28/2023 08:45:23 05/28/2023 13:46:39 Gynecologic examination 93245265 Z01.419 Screening mammography 24 949249 Z12.31 Morbid obesity 054057900 E66.01 [id number] SHANELL HOBSON [facility] [address] [place] [address] 06/22/2023 16:56:57 06/23/2023 09:11:41 Sore throat 596761634 J02.9 [id number] Patrick Mckoy MD [facility] [address] [address] 07/27/2023 09:53:48 07/30/2023 13:25:02 Chronic sinusitis 55995525 J32.9 Chronic cough 96554360 R 05.3 Cerebrospi nal fluid rhinorrhea 68740830 G96.00 [id number] Karrie Castellon [facility] [address] [place] [address] 09/29/2023 14:35:39 09/29/2023 16:07:10 Acute urinary tract infection 129474107 N39.0 [id number] Patrick Mckoy MD [facility] [address] [place] [address] 11/09/2023 11:07:31 11/10/2023 07:07:36 Chronic sinusitis 51776139 J32.9 Chronic rhinitis 9579147 6 J31.0 [id number] SHANELL HOBSON [facility] [address] [place] [address] 12/03/2023 15:26:03 12/03/2023 16:25:43 Administration of pneumococcal vaccine 54845035 Z23 Screening for osteoporosis 775127413 Z13.820 Trigeminal neuralgia 316 16733 G50.0 Essential hypertension 34900391 I10 Hyperlipidemia 71369411 E78.5 [id number] Patrick Mckoy MD [facility] [address] [place] [address] 12/14/2023 10:09:49 12/14/2023 13:40:25 Allergic rhinitis 23862141 J30.9 [id number] Karrie Castellno [facility] [address] [place] [address] 12/24/2023 09:55:26 12/24/2023 10:06:30 Blood in urine 27078897 R31.9 [id number] Sheila Fleming MA [facility] [address] [place] [address] 01/08/2024 15:07:21 01/11/2024 12:34:01 Administration of influenza vaccine 16368643 Z23 Health Concerns Section Related Observation LastModified by Organization Detai ls LastModified Time None Recorded Concern Status LastModified by Organization Details LastModified Time None Recorded Advance Directives Directive None Recorded Payers Encounter Date Sequence Insurance Name Policy Number Policy Smith Covered Member ID Smith Member ID Guarantor Name 11/09/2023 1 [facility] (MEDICAID HMO) [id number] Rina Ramirez [id number] Rina Navarrete 12/03/2023 1 [facility] (MEDICAID HMO) [id number] Rina Navarrete [id number] Rina Rojasos - Navarrete 12/14/2023 1 [facility] (MEDICAID HMO) [id number] Rina Rojasos [id number] Rina Rojasos - Navarrete 12/24/2023 1 [facility] (MEDICAID HMO) [id number] Rina Ramirez Navarrete [id number] Rina Ramirez - Navarrete 01/08/2024 1 [facility] (MEDICAID HMO) [id number] Rina Sanabriauelos Navarrete [id number] Rina Ramirez - Navarrete Notes Date Note Type Note Provider Name and Address Organization Details Recorded Time 11/09/2023 text/html patient complain ing of chronic sinusitis. She has nasal congestion and drainage but it is under reasonable control. She does have a sense of obstruction worse at night. She has had a CT scan which showed chronic changes in her sinuses. She complains of blockage and pressure in her ears. Patrick Mckoy MD [address], [place], [address], [facility] 11/09/2023 11:31:18 12/03/2023 text/html Throat pain for about 3 weeks now Pain is here for refills only. She is 63 now and agrees to pneumonia vaccine and DEXA scan. She denies URI or fevers today. SHANELL HOBSON Attn: Accounting,[address] [place], [address], [facility] 12/09/2023 11:07:03 12/14/2023 text/html patient complain ing of nasal congestion and drainage. She is not significantly improve with the Flonase. She does have chronic changes in her sinuses but she is not interested in pursuing that at this time. Patrick Mckoy MD [address] [place], [address], [facility] 12/14/2023 10:50:36 OBGyn Episode No OBEpisode recorded.
--- OUTSIDE RECORDS SUMMARY | 2024-04-22 19:40 | XMS_ITS | Encounter Summary ---
Author Organization [facility] Healthcare Address [address] [place] [address] Care Team Providers Care Fireworks Maker Name Role Phone Thu De Guzman Primary Care Provider + Encounter Details Date Type Department Care Team (Latest Contact Info) Description 03/28/2024 10:54 AM PRIVACY MANAGER - 03/28/2024 11:59 PM PRIVACY MANAGER Hospital Encounter [facility] [address] [place] [address] Pain in right foot Discharge Disposition: Discharge [...] day 02/10/2024 meloxicam (MOBIC) 7.5 mg tabletIndications :Osteoarthritis Take 1 tablet (7.5 mg total) by mouth daily 30 tablet 3 03/28/2024 07/26/2024 documented as of this encounter Discharge Disposition Disposition Code Departure Means Destination Discharge to home or self care documented in this encounter Plan of Treatment Not on file documented as of this encounter Procedures Procedure Name Priority Date/Time Associated Diagnosis Comments XR FOOT RIGHT 3 OR MORE VIEWS Schedule Routine, Read Routine (OP Routine) 03/28/2024 12:01 PM PRIVACY MANAGER Pain in right foot documented in this encounter Results * XR Foot Right 3 or More Views (03/28/2024 12:01 PM PRIVACY MANAGER) Anatomical Region Laterality Modality Lower Extremities, Foot Right Computed Radiography 03/31/2024 8:42 AM PRIVACY MANAGER Narrative 03/31/2024 8:44 AM PRIVACY MANAGER EXAM DESCRIPTION: XR FOOT RIGHT 3 OR [...] D: ??03/31/2024 8:44 AM T: Report ID: [id number] Reading Location: [id number] Procedure Note Misbah Mcmahan MD - 03/31/2024 [...] by Misbah Mcmahan M.D. T: Report ID: [id number] Reading Location: [place] [address] [address] [facility] IM[facility] XR PROCEDURES Final Re sult documented in this encounter Visit Diagnoses Diagnosis Pain in right foot Pain in soft tissues of limb documented in this encounter Care Teams Fireworks Maker Relationship Specialty Start Date End Date Thu De Guzman PA [address] [place] [address] PCP - General Physician Web Production Artist 06/30/23 documented as of this encounter
--- OUTSIDE RECORDS SUMMARY | 2024-04-22 19:40 | XMS_ITS | Encounter Summary ---
Author Organization [facility] Healthcare Address [address] [place] [address] Care Team Providers Care Radiologist Physician Name Role Phone Thu De Guzman Primary Care Provider + Reason for Referral * Diagnostic Imaging (Routine) - Closed Specialty Diagnoses / Procedures Referred By Sonac t Referred To Contact Diagnoses Mastodynia Procedures US Breast Right Limited Thu De Guzman PA [facility] [place] [address] Phone: tel: fax: [address] [phone] Referral ID Status Reason Start Date Expiration Date Visits Re quested Visits Authorized [id number] Closed 06/29/2023 07/28/2024 1 1 Reason for Visit * Diagnostic Imaging (Routine) - Closed Specialty Diagnoses / Procedures Referred By Contac t Referred To Contact Diagnoses Mastodynia Procedures US Breast Right Limited Thu De Guzman PA [facility] [place] [address] Phone: tel: fax: [address] [phone] Referral ID Status Reason Start Date Expiration Date Visits Re quested Visits Authorized [id number] Closed 06/29/2023 07/28/2024 1 1 Encounter Details Date Type Department Care Team (Latest Contact Info) Description 10/02/2023 12:57 PM CDT - 10/02/2023 11:59 PM CDT Hospital Encounter [facility] Medical Office Bl 1 Breast [facility] [address] [address] Mastodynia Discharge Disposition: Discharge to home or self [...] Procedure Name Priority Date/Time Associated Diagnosis Comments US BREAST RIGHT LIMITED Schedule Routine, Read Routine (OP Routine) 10/02/2023 1:41 PM CDT Mastodynia documented in this encounter Results * US Breast Right Limited (10/02/2023 1:41 PM CDT) Anatomical Region Laterality Modality Breast Right Ultrasound 10/02/2023 1:54 PM CDT Narrative 10/02/2023 1:55 PM CDT EXAM DESCRIPTION: ?? US BREAST RIGHT LIMITED; DIAGNOSTIC MAMMOGRAM BILATERAL W ROBERT REASON FOR STUDY: 62-year-old woman comes in [...] PM T: ??10/02/2023 1:55 PM Report ID: [id number] Reading Location: ??MAMMMHE Thu REECE IMG MAMMO PROCEDURES Fin al Result documented in this encounter Visit Diagnoses Diagnosis Mastodynia documented in this encounter Care Teams Radiologist Physician Relationship Specialty Start Date End Date Thu De Guzman PA [address] [place] [address] PCP - General Physician Retail Agent 06/30/23 documented as of this encounter
--- OUTSIDE RECORDS SUMMARY | 2024-04-22 19:40 | XMS_ITS | Encounter Summary ---
Author Organization [facility] Healthcare Address [address] [place] [address] Care Team Providers Care Auto Body Technician Name Role Phone Thu De Guzman Primary Care Provider + Encounter Details Date Type Department Care Team (Latest Contact Info) Description 02/08/2024 12:05 AM CDT - 02/08/2024 11:59 PM CDT Hospital Encounter [facility] Outside Images [address] [place] [id number] Discharge Disposition: Discharge to home or self [...] OUTSIDE FILMS Routine 02/08/2024 12:05 AM CDT documented in this encounter Results * XR Outside Reference (02/08/2024 12:05 AM CDT) Narrative ALEX_MATEO - 02/15/2024 10:39 AM CDT This order has been auto-finalized and does not contain a result. us Provider Transcribed Order IMG XR PROCEDURES Fin al Result [id number] documented in this encounter Visit Diagnoses Not on filedocumented in this encounter Care Teams Auto Body Technician Relationship Specialty Start Date End Date Thu De Guzman PA [address] [place] [id number] PCP - General Physician Chairman President And Chief Executive Officer 06/30/23 documented as of this encounter
--- OUTSIDE RECORDS SUMMARY | 2024-04-22 19:40 | XMS_ITS | Encounter Summary ---
Author Organization [facility] Healthcare Address [address] [place] [address] Care Team Providers Care Roller Mill Operator Name Role Phone Thu De Guzman Primary Care Provider + Reason for Visit * Reason Comments Pain Encounter Details Date Type Department Care Team (Late st Contact Info) Description 03/28/2024 11:00 AM COUNTY PROGRAM TECHNICIAN Office Visit [facility] Medical Group Orthopedics and Sports Medicine [address] [place] [phone] Hodan Whitesied PA [address] [place] [phone] Pain in right foot (Primary Dx); Right foot pain Social History Tobacco Use Types Packs/Day Years [...] 95.3 kg (210 lb) 03/28/2024 11:40 AM COUNTY PROGRAM TECHNICIAN Height 157.5 cm (5' 2 ) 03/28/2024 11:40 AM COUNTY PROGRAM TECHNICIAN Body Mass Index 38.41 03/28/2024 11:40 AM COUNTY PROGRAM TECHNICIAN documented in this encounter Ordered Prescriptions Prescription Sig Dispense Quantity Refills Last Filled Start Date End Date meloxicam (MOBIC) 7.5 mg tabletIndications: Osteoarthritis Take 1 tablet (7.5 mg total) by mouth daily 30 tablet 3 03/28/2024 07/26/2024 documented in this encounter Progress Notes * Hodan Whiteside PA - 03/28/2024 11:00 AM CST Images from the original note were not included. Subjective/Objective Patient ID: Rina Navarrete is a 63 y.o. female. Chief Complaint Chief Complaint Patient presents with Right Foot - Pain Vitals Ht 157.5 cm (5' 2 ) Wt 95.3 kg (210 lb) BMI 38.41 kg/m?? HPI Patient is seen today with her daughter and is presenting today for re- evaluation of right foot pain and cuboid fracture. Her foot pain is significantly improved since our prior visit and she has fully transitioned out of her boot and into a regular shoe without any issues. Additionally, She is working with [facility] to establish there as a patient for her bilateral knees, but they are having issues with obtaining her medical records from [place]. She also reports bilateral hand pain. Fortunately, her foot pain, knee pain, and hand pain has significantly improved with the meloxicam that we ordered for her at her last visit. No new trauma or injury. Review of Systems Constitutional: Negative for chills and fever. Respiratory: Negative for cough and shortness of breath. Gastrointestinal: Negative for nausea and vomiting. Genitourinary: Negative for difficulty urinating and dysuria. Musculoskeletal: Positive for arthralgias, joint swelling and myalgias. Neurological: Negative for weakness and numbness. All other systems reviewed and are negative. Examination: General Appearance: The patient is in no acute distress. Alert and oriented x3. Body mass index is 38.41 kg/m??. Respiratory: Respirations are even and unlabored. The patient does not use accessory muscles of respiration. Eyes: Pupils are equal and reactive. Psych: The patient is pleasant and cooperative and acts appropriately. Skin: The skin is grossly intact. There is no evidence for infection. Peripheral Pulses: There is no acute circulatory compromise to the extremities. Neurologic: The patient has no focal or lateralizing deficits. Musculoskeletal: Ortho Exam Right foot exam On inspection of the right foot, there is no deformity, wound, erythema, ecchymosis. She is nontender to palpation over the midfoot. She has no with passive motion of the midfoot joints. She has normal strength and range of motion of the right ankle but does experience pain with resisted range of mo tion. She was grossly neurovascularly intact. Imaging: X-ray imaging of the right foot taken today in clinic is negative for acute fracture or other acute injury. Prior cuboid avulsion fracture is not able to be visualized on imaging today. Assessment/Plan Diagnoses and all orders for this visit: Pain in right foot (Primary) - XR Foot Right 3 or More Views; Future Right foot pain - meloxicam (MOBIC) 7.5 mg tablet; Take 1 tablet (7.5 mg total) by mouth daily Plan: Fortunately, patient is no longer having pain in the right foot. Her knee pain and hand pain is also improved after taking meloxicam. I discussed with the patient that she should continue trying to obtain her medical records to establish as a patient at [facility] for her bilateral knees. We will also refer her to our hand surgeons for evaluation of her bilateral hand osteoarthritis. She may be released from our care to follow up as needed for new or worsening symptoms. She expressed understanding and agreement with the plan. Return if symptoms worsen or fail to improve. SHANELL Hines TY PROGRAM TECHNICIAN documented in this encounter Plan of Treatment Not on file documented as of this encounter Results * XR Foot Right 3 or More Views (03/28/2024 12:01 PM COUNTY PROGRAM TECHNICIAN) Anatomical Region Laterality Modality Lower Extremities, Foot Right Computed Radiography 03/31/2024 8:42 AM COUNTY PROGRAM TECHNICIAN Narrative 03/31/2024 8:44 AM COUNTY PROGRAM TECHNICIAN EXAM DESCRIPTION: XR FOOT RIGHT 3 OR [...] D: ??03/31/2024 8:44 AM T: Report ID: [id number] Reading Location: ??[id number] Procedure Note Misbah Mcmahan MD - 03/31/2024 [...] by Misbah Mcmahan M.D. T: Report ID: [id number] Reading Location: [id number] Hodan REECE IMG XR PROCEDURES Final Re sult documented in this encounter Visit Diagnoses Diagnosis Pain in right foot- Primary Pain in soft tissues of limb Right foot pain Pain in soft tissues of limb Pain in right foot Pain in soft tissues of limb documented in this encounter Discontinued Medications Medication Sig Discontinue Reason Start Date End Da te meloxicam (MOBIC) 7.5 mg tabletIndications:Right foot pain Take 1 tablet (7.5 mg total) by mouth daily Reorder 02/29/2024 03/28/2024 documented as of this encounter Care Teams Roller Mill Operator Relationship Specialty Start Date End Date Thu De Guzman PA [address] [place] [phone] PCP - General Physician Congressional Representative 06/30/23 documented as of this encounter
--- OUTSIDE RECORDS SUMMARY | 2024-04-22 19:40 | XMS_ITS | Encounter Summary ---
Author Organization [facility] Healthcare Address [address] [place] [address] Care Team Providers Care Stoner Hand Name Role Phone Thu De Guzman Primary Care Provider + Encounter Details Date Type Department Care Team (Late st Contact Info) Description 03/29/2024 Telephone [facility] Medical Group Hand Surgery [facility] [address] [place] [phone] Mar Underwood MA Social History Tobacco Use Types Packs/Day Years Used Date Smoking Tobacco: Never Assessed Comments Unknown Sex and Gender Information Value Date Recorded Sex Assigned at Not on file Legal Sex Female 10:26 AM CDT Gender Identity Female 06/30/2023 10:07 AM CDT Sexual Orientation Not on file documented as of this encounter Miscellaneous Notes * Telephone Encounter - Mar Underwood MA - 03/29/2024 3:28 PM FOOT DRILL OPERATOR Patient is scheduled to see Dr. Couch on 04/18/24 @ 945am at our [place] location. Called and confirmed appt with patients daughterAlisha. DRILL OPERATOR documented in this encounter Plan of Treatment Not on file documented as of this encounter Visit Diagnoses Not on filedocumented in this encounter Care Teams Stoner Hand Relationship Specialty Start Date End Date Thu De Guzman PA [address] [place] [phone] PCP - General Physician Protein Purification Scientist 06/30/23 documented as of this encounter
--- OUTSIDE RECORDS SUMMARY | 2024-04-22 19:40 | XMS_ITS | Encounter Summary ---
Author Organization [facility] Healthcare Address [address] [place] [address] Care Team Providers Care Associate Drafter Name Role Phone Thu De Guzman Primary Care Provider + Reason for Referral * Diagnostic Imaging (Routine) - Closed Specialty Diagnoses / Procedures Referred By Garett purcell Referred To Contact Diagnoses Mastodynia Procedures Diagnostic Mammogram Bilateral W Thu Lira PA [facility] [place] [address] Phone: tel: fax: [address] [phone] Referral ID Status Reason Start Date Expiration Date Visits Re quested Visits Authorized [id number] Closed 06/29/2023 07/28/2024 1 1 Reason for Visit * Diagnostic Imaging (Routine) - Closed Specialty Diagnoses / Procedures Referred By Garett purcell Referred To Contact Diagnoses Mastodynia Procedures Diagnostic Mammogram Bilateral W Thu Lira PA [address] [place] [address] Phone: tel: fax: [address] [phone] Referral ID Status Reason Start Date Expiration Date Visits Re quested Visits Authorized [id number] Closed 06/29/2023 07/28/2024 1 1 Encounter Details Date Type Department Care Team (Latest Contact Info) Description 10/02/2023 12:57 PM CDT - 10/02/2023 11:59 PM CDT Hospital Encounter [facility] Medical Office Bl 1 Breast [facility] [address] [place] [address] Mastodynia Discharge Disposition: Discharge to home or [...] Procedure Name Priority Date/Time Associated Diagnosis Comments DIAGNOSTIC MAMMOGRAM BILATERAL W JORDAN Schedule Routine, Read Routine (OP Routine) 10/02/2023 1:26 PM CDT Mastodynia documented in this encounter Results * Diagnostic Mammogram Bilateral W Jordan (10/02/2023 [...] PM T: ??10/02/2023 1:55 PM Report ID: [id number] Reading Location: ??MAMMM[facility] Thu REECE IMG MAMMO PROCEDURES Fin al Result documented in this encounter Visit Diagnoses Diagnosis Mastodynia documented in this encounter Care Teams Associate Drafter Relationship Specialty Start Date End Date Thu De Guzman PA [address] [place] [id number] PCP - General Physician Human Resource Advisor 06/30/23 documented as of this encounter
--- OUTSIDE RECORDS SUMMARY | 2024-04-22 19:40 | XMS_ITS | Encounter Summary ---
Author Organization [facility] Healthcare Address [address] [place] [address] Care Team Providers Care Catshovel Driver Name Role Phone No, Physician Primary Care Provider [phone] Encounter Details Date Type Department Care Team (Late st Contact Info) Description 05/28/2023 Orders Only [facility] Breast Imaging [address] [place] [address] Thu De Guzman PA [address] [place] [phone] Social History Tobacco Use Types Packs/Day Years [...] on filedocumented in this encounter Care Teams Catshovel Driver Relationship Specialty Start Date End Date No, Physician PCP - General 12/16/21 06/29/23 documented as of this encounter
== END 2024-04-15 08:38 | disposition home or self-care (01) ==
LOC: ANHIMG 08:38
PROVIDERS: PCP Physician Assistant; Visit Provider Physician Assistant
DX: Z13.820 Encounter for screening for osteoporosis (principal)
CPT/HCPCS: 77080